=== PATIENT | female | born 1955 | race Caucasian/White ===

== ENCOUNTER → 2018-11-28 | Outpatient (REF) | payer MEDICAID ==
[2018-12-03 00:06] LABS: ALDOSTERONE 3.4 ng/dL (0.0-30.0); RENIN LEVEL 9.413 ng/mL/hr (0.167-5.380)
== END ==
LOC: M LAB REF 12:38
PROVIDERS: ATTEND Internal Medicine
DX: E26.89 Other hyperaldosteronism (principal)

== ENCOUNTER 2019-04-01 13:17 | Inpatient (IN) | payer MEDICAID, OTHER ==
[~2019-04-01] VITALS: Ht 157.5 cm; Wt 61.5 kg
[2019-04-01] MEDS ORDERED: NS 1,000 ML IV ONE (14:30)
[2019-04-01] MEDS ORDERED: PANTOPRAZOLE 40MG INJ (PROTONIX) (C9113) IV ONE (14:30)
[2019-04-01] MEDS ORDERED: METOCLOPRAMIDE INJ 10MG/2ML VIAL (J2765) IV ONE (14:30)
[2019-04-01 14:56] LABS: BASO % 0.3 % (0.0-1.0); EOS # 0.1 10^3/uL (0.0-0.5); HEMATOCRIT 35.6 % (36.0-47.0); HEMOGLOBIN 11.2 g/dl (12.0-15.5); LYMPH # 0.9 10^3/uL (1.5-5.0); LYMPH % 7.6 % (24.0-44.0); MEAN CORPUSCULAR HEMOGLOBIN 26.2 pg (27.0-33.0); MEAN CORPUSCULAR HGB CONC 31.5 g/dl (32.0-36.5); MEAN CORPUSCULAR VOLUME 83.4 fl (80.0-96.0); MONO # 1.5 10^3/uL (0.0-0.8); MONO % 12.9 % (0.0-5.0); NEUTROPHILS # 9.2 10^3/uL (1.5-8.5); NEUTROPHILS % 77.2 % (36.0-66.0); PLATELET COUNT, AUTOMATED 966 10^3/uL (150-450); RED BLOOD COUNT 4.27 10^6/uL (4.00-5.40); WHITE BLOOD COUNT 11.9 10^3/uL (4.0-10.0)
--- NOTE | 2019-04-01 15:00 | REP ---
Chest x-ray: Two views. History: Abdomen pain. Findings: Heart is mildly enlarged with cardiothoracic ratio measuring 53.8%. The aorta is calcific and tortuous. There is minimal linear fibrosis in the left inferior perihilar region. The lungs are otherwise clear. Right hemidiaphragm is slightly elevated. Pleural angles are sharp. Pulmonary vasculature is not increased. Impression: Mildly enlarged heart. Linear fibrosis left base. Otherwise no acute disease. Electronically Signed by Jose Ramon Garcia MD 04/01/2019 05:21 P
[2019-04-01 15:11] LABS: INR 1.21; PROTHROMBIN TIME 15.1 SECONDS (11.8-14.0)
[2019-04-01 15:12] LABS: PARTIAL THROMBOPLASTIN TIME 39.5 SECONDS (25.0-38.4)
[2019-04-01 15:27] LABS: ALBUMIN 2.2 GM/DL (3.2-5.2); ALT/SGPT 29 U/L (12-78); BILIRUBIN,DIRECT 0.1 MG/DL (0.0-0.2); BILIRUBIN,TOTAL 0.3 MG/DL (0.2-1.0); BLOOD UREA NITROGEN 12 MG/DL (7-18); CALCIUM LEVEL 9.6 MG/DL (8.8-10.2); CARBON DIOXIDE LEVEL 27 MEQ/L (21-32); CHLORIDE LEVEL 98 MEQ/L (98-107); CREATININE FOR GFR 0.64 MG/DL (0.55-1.30); GLOMERULAR FILTRATION RATE > 60.0 (>45); GLUCOSE, FASTING 110 MG/DL (70-100); LIPASE 77 U/L (73-393); SODIUM LEVEL 132 MEQ/L (136-145); TOTAL PROTEIN 7.1 GM/DL (6.4-8.2)
[2019-04-01] MEDS ORDERED: ISOVUE-370 76% 100ML VIAL (Q9967) As Ordered ONE (15:29)
--- NOTE | 2019-04-01 16:47 | REP ---
CT abdomen and pelvis with IV but without oral contrast: History: Abdomen pain and bloating. Comparison CT study is from July 18, 2007. CT contrast dose: 100 ml of intravenous Isovue [address] findings: Digital preliminary mandarin speaking nanny radiograph shows no evidence of bowel distension. There is mild bibasilar linear fibrosis in the lung orozco. No pleural effusion is seen. There is however a moderate pericardial effusion. There is a mildly enlarged lymph node in the epicardial fat measuring 1.5 cm in diameter. There is thickening of the right hemidiaphragm. No focal liver lesion is seen. The spleen is unremarkable. There is a surgical clip in the location of the right adrenal gland. This appears to have been removed. The left adrenal gland contains a small nodule in its superior margin measuring 1.8 cm in diameter. The left adrenal gland is larger than it was in 2008. No abnormality is noted within the gallbladder or pancreas. There is mild right-sided hydronephrosis. The kidneys enhance symmetrically. There is a right upper pole cyst with some cortical scarring in the right kidney. There is an extensive pattern of soft tissue infiltration and nodularity along the peritoneal reflections throughout the abdomen superiorly and inferiorly consistent with peritoneal carcinomatosis. There is some infiltration of the mesenteric fat and a few mesenteric lymph nodes are seen. There is a large heterogeneously enhancing mass in the left mid abdomen laterally. This mass lesion measures 9.1 x 6.4 x 11.0 cm in overall dimension. There is adenopathy along its posteromedial. This includes a 1.9 cm x 1.5 cm lymph node. There are one or two smaller nodes. There is gastrocolic lymphadenopathy. There are two shellie foci here 2.5 and 1.9 cm in greatest diameter. There is no evidence of diffuse ascites. In the pelvis, there is peritoneal reflection infiltration as elsewhere in the peritoneal cavity. The margins of the uterus are obscured. Ovaries are obscured. Impression: Extensive infiltrative process throughout the peritoneum consistent with peritoneal carcinomatosis. Findings include a large mass in the left mid abdomen in the pericolonic and tyler mesenteric fat 11 cm in greatest diameter. There is multifocal adenopathy. There is moderate right-sided hydronephrosis due to right distal ureteral obstruction. There is a small nodule in the left adrenal gland. The right adrenal gland is removed. There is a moderate pericardial effusion. Principal differential possibilities would be metastatic ovarian carcinoma, lymphoma, and other metastatic adenocarcinoma. Electronically Signed by Jose Ramon Garcia MD 04/01/2019 05:23 P
[2019-04-01] MEDS ORDERED: ALBU83IN NEB (17:55)
[2019-04-01] MEDS ORDERED: ALBUTEROL SULFATE 2.5 MG/0.5 ML INH NEB SOLN NEB PRN (18:30)
[2019-04-01] MEDS ORDERED: ANEXSIA, NORCO 7.5MG/325MG TABLET(HYDROCODONE/APAP) PO PRN (18:30)
--- NOTE | 2019-04-01 18:49 | HPEPDOC ---
General Date of Admission Apr 01, 2019 at 17:19 Date of Service: Apr 01, 2019 Primary Care Physician: MAXIM JOSHI DO Attending Physician: JUANIS JACKSON MD Chief Complaint The patient is a 63-year-old female admitted with a reason for visit of Metastatic Cancer. History of Present Illness PRIMARY CARE PROVIDER: Maxim Joshi ATTENDING: CHIEF COMPLAINT: Abdominal pain, weight loss HISTORY OF PRESENT ILLNESS: Patient is a 63-year-old female who comes in with complaint of 2 months of abdominal pain, nausea, vomiting, bloating and shortness of breath, recently she has noticed that she has become more lethargic and pale in color.. Her abdominal pain is located in her lower gastric area, made worse with food. She reports that 2 weeks ago. She developed decreased appetite, quick fullness with eating, black tarry stools, and reports a 22 pound weight loss in the last 10 months unintentionally. She denies any constipation, denies any dysphagia, denies any dysphonia, denies any uterine bleeding. . She denies any prior colonoscopy, states her last Pap smear was when she was 4 days. Patient states that her vitals have been normal at home. She came in today because she states that has becomes too difficult for her to eat without causing abdominal pain, and bloated or full. 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 . She stated that at the time she was having episodic elevated blood pressures, and they noted 2 tumors, one on the right and one on the left adrenal gland. However, the right adrenal gland was removed. 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 Hospitalist team was called for admission. PAST MEDICAL HISTORY: #1 pheochromocytoma status post surgical resection #2 hypertension #3. Psoriasis #4 Hernandez phenomenon PAST SURGICAL HISTORY: #1 adrenalectomy of the right adrenal gland #2. Laser surgery on tear duct SOCIAL HISTORY: Happily , lives with , no drug use. Occasional alcohol use. No illicit substance FAMILY HISTORY: Patient's brother was diagnosed with pituitary tumor, first cousin was diagnosed with stomach cancer. Primary care for patient has concern for MEN1 ALLERGIES: Please see below. REVIEW OF SYSTEMS: CONSTITUTIONAL: No fevers, denies chills, denies weight loss, admits to lethargy HEENT: No rhinorrhea, no itchy eyes, no congesion, No tonsilor exudates CARDIOVASCULAR: No murmurs no palpitations and arrhythmias, admits to RESPIRATORY: Not cough, No SOB, no issues to report GASTROINTESTINAL: Positive for nausea, vomiting, no diarrhea, no difficulty swelling, no constipation HEMATOLOGICAL: No bleeding GENITOURINARY:No Issues HEMATOLOGIC/LYMPHATIC: No swelling, No bleeding PE GENERAL APPEARANCE: Alert no acute distress. SKIN: Warm, well perfused., Slightly pale ENT: Palate intact, gonzalez tympanic membrane no bulging, no erythema, Neck supple, no thyromegaly THORAX: Symmetrical. LUNGS: Clear to auscultation bilaterally. HEART: Normal S1, S2. No murmurs, no rubs, no gallops ABDOMEN: Soft. No masses. Bowel sounds are present., No organomegaly TRUNK/SPINE:Straight. EXTREMITIES: Moves all extremities equally. No gross deformities. PULSES: 2+ upper and lower extremity . VIEW OF SYSTEMS: HOME MEDICATIONS: Please see below. LABORATORY DATA: See below. IMAGING: CT of the abdomen/pelvis:Extensive infiltrative process throughout the peritoneum consistent with peritoneal carcinomatosis. Findings include a large mass in the left mid abdomen in the pericolonic and perimesenteric fat 11 cm in greatest diameter. There is multifocal adenopathy. There is moderate right-sided hydronephrosis due to right distal ureteral obstruction. There is a small nodule in the left adrenal gland. The right adrenal gland is removed. There is a moderate pericardial effusion. Principal differential possibilities would be metastatic ovarian carcinoma, lymphoma, and other metastatic adenocarcinoma. Chest Xray; Mildly enlarged heart. Linear fibrosis left base. Otherwise no acute disease MICROBIOLOGY: Please see below. ASSESSMENT: Patient is a 63-year-old with past medical history significant for pheochromocytoma, family history is concerning for men type I syndrome presented with nausea, vomiting, and abdominal pain. CT showed peritoneal carcinomatosis. She'll be admitted for cancer workup with differential diagnosis including metastatic ovarian cancer, lymphoma or metastatic adenocarcinoma. #Peritoneal carcinomatosis secondary to pheochromocytoma, recurrence, lymphoma, metastatic adenocarcinoma, ovarian carcinoma, pancreatic carcinoma -Patient was tachycardic on presentation -Will order 24-hour urine metanephrines, as well as 24-hour urine catecholamines, plasma fractionated metanephrines has also been ordered to investigate for pheochromocytoma -IV fluids due to poor appetite, regular diet. Also ordered -CEA 125 to investigate for ovarian cancer -CA 19.9 to investigate for pancreatic cancer -Will consult oncology in the morning #Thrombocytosis, secondary to underlying carcinoma -Please see above for investigate if methods #Moderate right-sided hydronephrosis due to right external urethral obstruction -Patient has no issues urinating, she denied any weak stream, no obstructive symptoms. We'll continue to monitor. Consider referral to urology for stent placement. If patient's urination becomes an issue. #DVT prophylaxis -Lovenox Home Medications Scheduled PRN Albuterol Sulf (Albuterol Sulfate) 2.5 Mg/3 Ml Vial.neb, 1 VIAL NEB Q4H PRN for SOB/WHEEZING, (Reported) Allergies Coded Allergies: Penicillins (Verified Allergy, Unknown, 04/01/19) ATTENDING NOTE I have personally evaluated and examined the patient. Discussed with residents and student regarding plan of care and agree with the above assessment and plan. 63F presented with complaints of N/V/abdominal tenderness and bloating for asim ral months, found to have extensive peritoneal infiltrates/mass and lymphadenopathy suggestive of peritoneal carcinomatosis in setting of extensive cancer history in family. Reportedly had a history of aldosterone tumor vs pheochromocytoma? Need to obtain records, oncology consultation and biopsy. BELTRAN ROA DO Apr 01, 2019 18:49 JUANIS JACKSON MD Apr 02, 2019 07:53
[2019-04-01 20:00] VITALS: BP 146/73
[2019-04-01] MEDS: METOCLOPRAMIDE INJ 10MG/2ML VIAL (J2765) IV SCH (21:26)
[2019-04-01] MEDS ORDERED: SLF 3 ML SYR IV PRN (21:30)
[2019-04-01] MEDS: SLF 3 ML SYR IV SCH (21:46)
[2019-04-02] VITALS: BP 132/71
[2019-04-02] MEDS: METOCLOPRAMIDE INJ 10MG/2ML VIAL (J2765) IV SCH ×4 (03:46→20:32)
[2019-04-02 04:00] VITALS: BP 131/67
[2019-04-02] MEDS: SLF 3 ML SYR IV SCH ×3 (05:20→20:32)
[2019-04-02 06:49] LABS: ALBUMIN 1.6 GM/DL (3.2-5.2); ALT/SGPT 22 U/L (12-78); BILIRUBIN,TOTAL 0.3 MG/DL (0.2-1.0); BLOOD UREA NITROGEN 9 MG/DL (7-18); CALCIUM LEVEL 8.6 MG/DL (8.8-10.2); CARBON DIOXIDE LEVEL 28 MEQ/L (21-32); CHLORIDE LEVEL 101 MEQ/L (98-107); CREATININE FOR GFR 0.74 MG/DL (0.55-1.30); GLOMERULAR FILTRATION RATE > 60.0 (>45); GLUCOSE, FASTING 156 MG/DL (70-100); MAGNESIUM LEVEL 1.6 MG/DL (1.8-2.4); POTASSIUM SERUM 4.1 MEQ/L (3.5-5.1); SODIUM LEVEL 134 MEQ/L (136-145); TOTAL PROTEIN 6.7 GM/DL (6.4-8.2)
[2019-04-02 08:00] VITALS: BP 114/77
[2019-04-02] MEDS ORDERED: NS 1,000 ML IV SCH (08:00)
[2019-04-02 08:03] LABS: BASO # 0.1 10^3/uL (0.0-0.2); BASO % 0.4 % (0.0-1.0); EOS # 0.1 10^3/uL (0.0-0.5); EOS % 1.2 % (0.0-3.0); HEMATOCRIT 32.8 % (36.0-47.0); HEMOGLOBIN 10.2 g/dl (12.0-15.5); LYMPH % 8.5 % (24.0-44.0); MEAN CORPUSCULAR HEMOGLOBIN 26.3 pg (27.0-33.0); MEAN CORPUSCULAR HGB CONC 31.1 g/dl (32.0-36.5); MEAN CORPUSCULAR VOLUME 84.5 fl (80.0-96.0); MONO % 17.3 % (0.0-5.0); NEUTROPHILS # 8.3 10^3/uL (1.5-8.5); NEUTROPHILS % 71.3 % (36.0-66.0); PLATELET COUNT, AUTOMATED 935 10^3/uL (150-450); RED BLOOD COUNT 3.88 10^6/uL (4.00-5.40); WHITE BLOOD COUNT 11.6 10^3/uL (4.0-10.0)
[2019-04-02] MEDS ORDERED: MAG SULF 1GM/100ML (MAG RUN) 1 GM in IV 1 EA IV ONE (08:15)
[2019-04-02] MEDS: ENOXAPARIN 40 MG/0.4 ML SYRINGE (J1650) SC SCH (09:00)
--- NOTE | 2019-04-02 11:43 | IPNPDOC ---
Text Note Date of Service The patient was seen on 04/02/19. NOTE SUBJECTIVE: Patient was examined at bedside, she was found by family. She had. She denied chest pain. She had no overnight activity. She denied any breathing difficulty. She is scheduled for biopsy this afternoon. All of her questions were appropriately answered. OBJECTIVE: PHYSICAL EXAMINATION: GENERAL APPEARANCE: Alert no acute distress. SKIN: Warm, well perfused. , Slightly pale appearance LUNGS: Clear to auscultation bilaterally. HEART: Normal S1, S2. No murmurs, no rubs, no gallops ABDOMEN: Soft. No masses. Bowel sounds are present. TRUNK/SPINE:Straight. EXTREMITIES: Moves all extremities equally. No gross deformities. PULSES: 2+ upper and lower extremity . LABORATORY DATA: Please see below. IMAGING: CT of the abdomen/pelvis:Extensive infiltrative process throughout the peritoneum consistent with peritoneal carcinomatosis. Findings include a large mass in the left mid abdomen in the pericolonic and perimesenteric fat 11 cm in greatest diameter. There is multifocal adenopathy. There is moderate right-sided hydronephrosis due to right distal ureteral obstruction. There is a small nodule in the left adrenal gland. The right adrenal gland is removed. There is a moderate pericardial effusion. Principal differential possibilities would be metastatic ovarian carcinoma, lymphoma, and other metastatic adenocarcinoma. 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 CT showed peritoneal carcinomatosis. She'll be admitted for cancer workup with differential diagnosis including metastatic ovarian cancer, lymphoma or metastatic adenocarcinoma. 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 Has a past medical h -Patient was tachycardic on presentation, but has settled down since presentation -Pending 24-hour urine metanephrines, -Pending 24-hour urine catecholamines - Pending CA 125 to investigate for ovarian cancer -Pending CA 19.9 to investigate for pancreatic cancer -Pending CEA -consulted oncology - Will obtain old out patient/inpatient records from [facility] -Pending biopsy by IR. This afternoon #Thrombocytosis, secondary to underlying carcinoma -Please see above for investigate if methods -Improving #Moderate right-sided hydronephrosis due to right external urethral obstruction -Patient has no issues urinating, she denied any weak stream, no obstructive symptoms. We'll continue to monitor. Consider referral to urology for stent placement. If patient's urination becomes an issue. -She is currently making adequate urine for 24-hour urine collection. -BUN and creatinine within normal limits #DVT prophylaxis -Lovenox ATTENDING NOTE I have personally evaluated and examined the patient. Discussed with residents and student regarding plan of care and agree with the above assessment and plan. VS,Fishbone, I+O VS, Fishbone, I+O Laboratory Tests 04/01/19 14:33 04/02/19 05:38 04/02/19 05:40 Vital Signs Date Time Temp Pulse Resp B/P (MAP) Pulse Ox O2 Delivery O2 Flow Rate FiO2 04/02/19 08:00 98.4 93 18 114/77 (89) 95 Room Air I&O- Last 24 Hours up to 6 AM 04/02/19 06:00 Intake Total 2040 ml Output Total 1205 ml Balance 835 ml GME ATTESTATION GME ATTESTATION My faculty preceptor for this patient encounter was physically present during the encounter and was fully available. All aspects of the patient interview, examination, medical decision making process, and medical care plan development were reviewed and approved by the faculty preceptor. The faculty preceptor is aware and concurs with the plan as stated in the body of this note and will attest to such by his/her cosignature. BELTRAN ROA DO Apr 02, 2019 11:43 JUANIS JACKSON MD Apr 02, 2019 13:40
[2019-04-02 11:51] VITALS: BP 116/66
[2019-04-02] MEDS ORDERED: LIDOCAINE 1% MDV 20ML VIAL As Ordered ONE (14:05)
[2019-04-02 16:00] VITALS: BP 129/61
--- NOTE | 2019-04-02 16:20 | REP ---
ULTRASOUND-GUIDED LEFT ABDOMINAL MASS BIOPSY The procedure was performed under the direct supervision of Dr. Garcia. The patient has a history of A large heterogeneously enhancing mass in the in the left abdomen laterally measuring 9.1 x 6.4 x 11 cm seen on a previous CT scan dated 04/01/2019. The risks and benefits of the procedure were explained to the patient and informed consent was obtained. The left abdominal mass was localized using ultrasound guidance. The skin was prepped and draped in a sterile fashion. 1% lidocaine was used as a local anesthetic. Using ultrasound guidance a 17/18 gauge coaxial needle biopsy system was inserted and advanced into the mass. Eight core biopsy samples were obtained and sent to lab. The patient tolerated the procedure well and there were no immediate complications. After the appropriate amount of monitored convalescence the patient was discharged from the department. Electronically Signed by LIAM Cummins 04/02/2019 03:23 P Electronically Signed by Jose Ramon Garcia MD 04/02/2019 04:11 P
[2019-04-02 20:00] VITALS: BP 130/70
--- NOTE | 2019-04-02 22:58 | CR ---
DATE OF CONSULTATION: 04/02/2019 INPATIENT HEMATOLOGY/ONCOLOGY CONSULTATION REQUESTING PHYSICIAN: Dr. Kang IDENTIFICATION AND CHIEF COMPLAINT: Shannan Gonzales is a amauri 63-year-old woman seen at the request of Dr. Kang of the inpatient medicine service for evaluation and management recommendations regarding newly identified peritoneal carcinomatosis of uncertain etiology. The patient reports, "I was throwing up and couldn't keep anything down and so I came to the hospital." HISTORY OF PRESENT ILLNESS: Shannan Gonzales is a very pleasant 63 with a past medical history significant for bilateral adrenal adenomas complicated by paroxysmal hypertension in the past. The patient was found to have paroxysmal hypertension in the year 2008 and diagnostic evaluation showed endocrine abnormalities, with excessive adrenal activity. She underwent resection of a right adrenal adenoma at [facility] in the year 2000 which improved, but did not completely correct, her hypertension. The patient remained clinically stable until approximately 2 months ago, when she had gradual onset of abdominal pain, nausea, vomiting and abdominal bloating. She presented to the emergency department at [facility], and was admitted to hospital on April 01, 2019. The patient underwent CT scan of the abdomen and pelvis on the day of admission, with findings consistent with peritoneal carcinomatosis. Report was of extensive soft tissue infiltration and nodularity along the peritoneal reflection throughout the abdomen, with pathologic mesenteric lymph nodes observed. A large, heterogeneous, enhancing mass was noted in the left mid abdomen laterally measuring 9.1 cm x 6.4 cm x 11 cm in overall dimensions. Lymphadenopathy, pathologic in size, was also noted. In the chest, there was a mildly enlarged lymph node in the epicardial fat measuring 1.5 cm with thickening of the right hemidiaphragm seen. The liver and spleen were unremarkable. The patient underwent needle aspiration under ultrasound guidance on April 02, 2019 with histopathologic review pending at this time. Mrs. Gonzales reports persistent abdominal pain rated only 3 out of 10 in intensity at this time. She is ambulatory, and nausea and vomiting have improved since hospital admission. She has had no recent fevers, chills nor sweats. ALLERGIES: The patient has a history of allergy to PENICILLIN. CURRENT MEDICATIONS: - albuterol nebulizer therapy 2.5 mg by mouth every 4 hours as needed for wheezing or dyspnea. PAST MEDICAL HISTORY: The patient has a past history most significant for bilateral adrenal adenomas with right adrenalectomy in 2010. There is a history of paroxysmal hypertension associated with her adenomas. There is no documentation of a true pheochromocytoma per the patient or review of records. There is a history of psoriasis and a history of Raynaud's syndrome. The patient also underwent bilateral laser surgery to open blocked tear ducts in the past. 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 Tobacco: The patient has never used tobacco. Alcohol: The patient rarely consumes alcohol. Illicit drugs: The patient has never used illicit drugs. FAMILY HISTORY: The patient's father at age of 51 from myocardial infarction. The patient's mother at age of 55 of carcinoma of the throat associated with tobacco use. The patient had a sister who of lung cancer and a brother who of a central nervous system tumor at the age of approximately 49. The patient has four children all of whom are healthy. REVIEW OF SYSTEMS: Neurologic: History of headaches associated with paroxysmal hypertension in the distant past. No seizures. No focal neurologic deficits. No tremor. Respiratory: Modest shortness of breath prior to admission, quiescent at this time. No cough. No chest pain. Cardiac: No history of myocardial infarction. No exertional chest pressure. No leg edema. No orthopnea. Gastrointestinal: Abdominal pain with nausea and vomiting prior to admission, along with irregular bowel habits with intermittent constipation and diarrhea over the past several weeks. No history of jaundice. Hematologic: No history of excessive bleeding or bruising. No prior history of lymphadenopathy. Genitourinary: No history of nephrolithiases. No dysuria, no hematuria. Endocrine: History of hypertension as noted. No history of diabetes mellitus nor thyroid disease. No intolerance of heat or cold, nor polyphagia or polydipsia. The remainder of the review of systems was obtained and was negative. PHYSICAL EXAMINATION: The patient is a petite, well-developed, well-nourished woman, awake, alert and fully oriented, friendly, cooperative, in no distress acutely. Height 157.48 cm, weight 60.7 kg, body surface area 1.64 meters squared. Temperature 97.0, pulse 97, respirations 16, blood pressure 130/70, oxygen saturation 96% on room air. HEENT: Normocephalic, atraumatic. Pupils round and reactive. Extraocular muscles intact. Sclerae anicteric. Oropharynx without lesions. Neck: Supple without thyromegaly. Lymphatics: No pathologic lymphadenopathy noted in the supraclavicular, cervical, axillary, nor inguinal regions. Lungs: Clear to auscultation and percussion. Spine: Nontender. Cardiac exam: Regular rhythm. Point of maximal impulse nondisplaced. S1, S2 without gallop, rub, or murmur appreciated. Breast: Examination deferred at this time (the patient reports she has not had a recent breast exam). Abdomen: Active bowel sounds. The abdomen is mildly distended and mildly tender in the right lower quadrant. There is a palpable mass in the right lower quadrant that measures approximately 10 cm in diameter with irregular contours. Rectal: Examination deferred. Pelvic: Examination deferred. Extremities: Without clubbing, cyanosis or edema. Neurologic Exam: Mental status intact. Cranial nerves intact. Motor and sensory grossly intact. LABORATORY DATA: Laboratory studies dated April 02, 2019 include white blood count 11,600 per microliter, hemoglobin 10.2 grams per deciliter, hematocrit 32.8%, platelet count 935,000. Sodium 134, potassium 4.1, chloride 101, bicarbonate 28, BUN 9, creatinine 0.74 mg per deciliter, glucose 156 mg per deciliter, alkaline phosphatase elevated at 169. Albumin markedly depressed at 1.6 grams per deciliter. IMPRESSION: Peritoneal carcinomatosis. The patient has peritoneal carcinomatosis without evidence of significant thoracic disease. The patient declined a breast exam at this time but is willing to proceed with a breast exam at some point during this admission. There is a range of diagnostic considerations, but peritoneal carcinomatosis is most often seen in ovarian cancer and colon cancer and these, therefore, are the most likely tissue types to be considered. Less likely is gastric cancer and breast cancer. Lymphoma remains a consideration, although this would be an atypical presentation as one would expect bulky lymphadenopathy given the degree of peritoneal disease. It is unlikely that the patient has a pheochromocytoma as this is an atypical presentation, particularly in the absence of uncontrolled hypertension. A tissue diagnosis will determine the appropriate staging procedures and management options. There is a remote possibility that the diagnosis will ultimately be cancer of unknown primary, but this is relatively unlikely. A lengthy conversation was undertaken with the patient and her beginning at 8:00 p.m. and ending at 9:45 p.m. with more than one hour spent in [id number] time counseling the patient regarding possible diagnoses and treatment algorithms depending upon the specific histologic diagnosis. The patient and her appear to be somewhat more comfortable with the situation at this time. It is recommended that breast examination be performed prior to discharge, but results from biopsy will likely provide the histologic diagnosis and guide management. The patient will be seen in followup on a regular basis while she remains in hospital, and it was cautioned that she may require therapy at a large tertiary care center for at least part of her treatment, but this remains to be determined. They were asked to contact this practice should questions or concerns arise.
[2019-04-03] VITALS: BP 130/67
[2019-04-03] MEDS: METOCLOPRAMIDE INJ 10MG/2ML VIAL (J2765) IV SCH ×3 (03:17→15:44)
[2019-04-03 04:00] VITALS: BP 129/68
[2019-04-03] MEDS: SLF 3 ML SYR IV SCH ×2 (05:27→14:30)
[2019-04-03 06:21] LABS: HEMATOCRIT 32.6 % (36.0-47.0); HEMOGLOBIN 10.1 g/dl (12.0-15.5); MEAN CORPUSCULAR VOLUME 83.8 fl (80.0-96.0); PLATELET COUNT, AUTOMATED 940 10^3/uL (150-450); RED BLOOD COUNT 3.89 10^6/uL (4.00-5.40); WHITE BLOOD COUNT 11.3 10^3/uL (4.0-10.0)
[2019-04-03 08:00] VITALS: BP 129/66
[2019-04-03] MEDS: ENOXAPARIN 40 MG/0.4 ML SYRINGE (J1650) SC SCH (09:00)
[2019-04-03 10:33] LABS: CA 125 259.1 U/ML (<30.2)
[2019-04-03 10:34] LABS: CA19-9 TUMOR MARKER,CARBOHYDRA < 1.2 U/ML (<35.0)
[2019-04-03 12:00] VITALS: BP 132/68
--- NOTE | 2019-04-03 12:34 | IPNPDOC ---
Text Note Date of Service The patient was seen on 04/03/19. NOTE SUBJECTIVE: Patient was examined this morning, she is status post tissue biopsy. She tolerated the procedure without any difficulty. . She was evaluated by oncologist, Dr. Salvador last night, she reported that all of her questions were answered. She is currently patient is awaiting the results of her tissue biopsy. OBJECTIVE: PHYSICAL EXAMINATION: GENERAL APPEARANCE: Alert no acute distress. LUNGS: Clear to auscultation bilaterally. HEART: Normal S1, S2. No murmurs, no rubs, no gallops ABDOMEN: Soft. No masses. Bowel sounds are present. PULSES: 2+ upper and lower extremity . LABORATORY DATA: Please see below. IMAGING: CT of the abdomen/pelvis:Extensive infiltrative process throughout the peritoneum consistent with peritoneal carcinomatosis. Findings include a large mass in the left mid abdomen in the pericolonic and perimesenteric fat 11 cm in greatest diameter. There is multifocal adenopathy. There is moderate right-sided hydronephrosis due to right distal ureteral obstruction. There is a small nodule in the left adrenal gland. The right adrenal gland is removed. There is a moderate pericardial effusion. Principal differential possibilities would be metastatic ovarian carcinoma, lymphoma, and other metastatic adenocarcinoma. 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 CT showed peritoneal carcinomatosis. She'll be admitted for cancer workup with differential diagnosis including meta static ovarian cancer, lymphoma or metastatic adenocarcinoma. 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 -Elevated CA 125-- suggestive of ovarian cancel. Will await tissue biospy -Status post tissue biospy -Pending 24-hour urine metanephrines, -Pending 24-hour urine catecholamines - Pending CA 125 to investigate for ovarian cancer -Pending CA 19.9 to investigate for pancreatic cancer -Dr. Salvador, Oncology has been consulted and will follow the case - Will obtain old out patient/inpatient records [facility] -Currently Pending pathology of tissue biospy results #Thrombocytosis, secondary to underlying carcinoma -Will continue to monitor #Moderate right-sided hydronephrosis due to right external urethral obstruction -Patient has no issues urinating, she denied any weak stream, no obstructive symptoms. We'll continue to monitor. Consider referral to urology for stent plac ement. If patient's urination becomes an issue. #DVT prophylaxis -Lovenox ATTENDING NOTE I have personally evaluated and examined the patient. Discussed with residents a nd student regarding plan of care and agree with the above assessment and plan. VS,Fishbone, I+O VS, Fishbone, I+O Laboratory Tests 04/03/19 05:48 Vital Signs Date Time Temp Pulse Resp B/P (MAP) Pulse Ox O2 Delivery O2 Flow Rate FiO2 04/03/19 08:00 99.0 100 22 129/66 (87) 96 04/03/19 04:00 Room Air I&O- Last 24 Hours up to 6 AM 04/03/19 06:00 Intake Total 2840 ml Output Total 2700 ml Balance 140 ml GME ATTESTATION GME ATTESTATION My faculty preceptor for this patient encounter was physically present during the encounter and was fully available. All aspects of the patient interview, examination, medical decision making process, and medical care plan development were reviewed and approved by the faculty preceptor. The faculty preceptor is aware and concurs with the plan as stated in the body of this note and will attest to such by his/her cosignature. BELTRAN ROA DO Apr 03, 2019 12:34 JUANIS JACKSON MD Apr 03, 2019 19:22
[2019-04-03 13:38] LABS: BLOOD UREA NITROGEN 8 MG/DL (7-18); CALCIUM LEVEL 8.7 MG/DL (8.8-10.2); CARBON DIOXIDE LEVEL 23 MEQ/L (21-32); CHLORIDE LEVEL 96 MEQ/L (98-107); CREATININE FOR GFR 0.86 MG/DL (0.55-1.30); GLOMERULAR FILTRATION RATE > 60.0 (>45); GLUCOSE, FASTING 336 MG/DL (70-100); POTASSIUM SERUM 4.5 MEQ/L (3.5-5.1); SODIUM LEVEL 129 MEQ/L (136-145)
[2019-04-03 16:00] VITALS: BP 118/60
[2019-04-03] MEDS ORDERED: ACETAMINOPHEN TAB 650MG DOSE (2X325MG) PO PRN (17:15)
[2019-04-03] MEDS ORDERED: HYDR-4514 PO (17:56)
[2019-04-03] MEDS ORDERED: ONDA-195 PO (17:59)
[2019-04-03] MEDS ORDERED: REGL5TAB2 PO (18:02)
--- NOTE | 2019-04-03 18:33 | DS.PDOC ---
Discharge Summary General Date of Admission Apr 01, 2019 at 17:19 Date of Discharge 04/03/19 Specialist/Consultants Involve: EVERARDO SALVADOR MD Discharge Summary PROCEDURES PERFORMED DURING STAY: Biospy of abdominal Mass ADMITTING DIAGNOSES: 1. Abdominal Pain, Nausea, Weight Loss, Poor appetite DISCHARGE DIAGNOSES: 1. Peritoneal Carcinomatosis 2. Large Litzy in mid abdomen COMPLICATIONS/CHIEF COMPLAINT: Metastatic Cancer. HISTORY OF PRESENT ILLNESS: Patient is a 63-year-old female who comes in with complaint of 2 months of abdominal pain, nausea, vomiting, bloating and shortness of breath, recently she has noticed that she has become more lethargic and pale in color.. Her abdominal pain is located in her lower gastric area, made worse with food. She reports that 2 weeks ago. She developed decreased appetite, quick fullness with eating, black tarry stools, and reports a 22 pound weight loss in the last 10 months unintentionally. She denies any constipation, denies any dysphagia, denies any dysphonia, denies any uterine bleeding. . She denies any prior colonoscopy, states her last Pap smear was when she was 4 days. Patient states that her vitals have been normal at home. She came in today because she states that has becomes too difficult for her to eat without causing abdominal pain, and bloated or full. 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 . She stated that at the time she was having episodic elevated blood pressures, and they noted 2 tumors, one on the right and one on the left adrenal gland. However, the right adrenal gland was removed. 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 Hospitalist team was called for admission. HOSPITAL COURSE: Patient was admitted and underwent a left abdominal mass biospy by interventional radiology. She tolerated the procedure without any difficulty. Tumor markers where ordered. Oncology was consulted. Patient was a evaluated by oncology, and a discussion was had with patient about diagnosis and treatment algorithm, depending on specific histological diagnosis. Family had their quest ions answered adequately by oncology as well as the primary team. She was discharged on April 03 2019 in stable condition. Patient was hemodynamically stable. She was able tolerate by mouth food. She reported minimal nausea with eating. She was discharge instructions to follow-up with Dr. Salvador, oncology on April 07 for biopsy follow up. DISCHARGE MEDICATIONS: Please see below. ALLERGIES: Please see below. PHYSICAL EXAMINATION ON DISCHARGE: VITAL SIGNS: Please see below. GENERAL APPEARANCE: Alert no acute distress. LUNGS: Clear to auscultation bilaterally. HEART: Normal S1, S2. No murmurs, no rubs, no gallops ABDOMEN: Soft. No masses. Bowel sounds are present. PULSES: 2+ upper and lower extremity . LABORATORY DATA: Please see below. IMAGING: Chest x-ray 04/01/2019: Mildly enlarged heart. Linear fibrosis left base. Otherwise no acute disease. CT abdomen and pelvis, 04/01/2019: Extensive infiltrative process throughout the peritoneum consistent with peritoneal carcinomatosis. Findings include a large mass in the left mid abdomen in the pericolonic and tyler mesenteric fat 11 cm in greatest diameter. There is multifocal adenopathy. There is moderate right-sided hydronephrosis due to right distal ureteral obstruction. There is a small nodule in the left adrenal gland. The right adrenal gland is removed. There is a moderate pericardial effusion. Principal differential possibilities would be metastatic ovarian carcinoma, lymphoma, and other metastatic adenocarcinoma. PROGNOSIS: Guarded ACTIVITY: Tolerated. DIET:. As tolerated DISCHARGE PLAN:. Discharged home. Follow-up with oncology DISPOSITION: . DISCHARGE INSTRUCTIONS: 1. Follow-up with oncology ITEMS TO FOLLOWUP ON ON OUTPATIENT: 1. Biopsy results, tumor marker results DISCHARGE CONDITION: Stable TIME SPENT ON DISCHARGE: Greater than 40 minutes. Vital Signs/I&Os Vital Signs Date Time Temp Pulse Resp B/P (MAP) Pulse Ox O2 Delivery O2 Flow Rate FiO2 04/03/19 17:02 99.6 04/03/19 16:00 105 22 118/60 (79) 96 04/03/19 04:00 Room Air I&O- Last 24 Hours up to 6 AM 04/03/19 06:00 Intake Total 2840 ml Output Total 2700 ml Balance 140 ml Laboratory Data Labs 24H Laboratory Tests 2 04/03/19 05:48: Nucleated Red Blood Cells % (auto) 0.0 04/03/19 12:55: Anion Gap 10, Glomerular Filtration Rate > 60.0, Calcium Level 8.7L CBC/BMP Laboratory Tests 04/03/19 05:48 11/15/19 12:55 Discharge Medications Scheduled PRN Albuterol Sulf (Albuterol Sulfate) 2.5 Mg/3 Ml Vial.neb, 1 VIAL NEB Q4H PRN for SOB/WHEEZING, (Reported) Hydrocodone/Acetaminophen (Hydrocodone-Acetamin 7.5-325) 1 Each Tablet, 1 TAB PO Q6HP PRN for MILD PAIN (PS 1-4) Take one tab every 6 hours for pain Metoclopramide Hcl (Reglan) 5 Mg Tablet, 5 MG PO Q6H PRN for NAUSEA 1 hour prior to procedure Ondansetron HCl (Ondansetron HCl) 4 Mg Tablet, 4 MG PO Q6HP PRN for NAUSEA Allergies Coded Allergies: Penicillins (Verified Allergy, Unknown, 04/01/19) ATTENDING NOTE I have personally evaluated and examined the patient. Discussed with residents and student regarding plan of care and agree with the above assessment and discharge plan. GME ATTESTATION GME ATTESTATION My faculty preceptor for this patient encounter was physically present during the encounter and was fully available. All aspects of the patient interview, examination, medical decision making process, and medical care plan development were reviewed and approved by the faculty preceptor. The faculty preceptor is aware and concurs with the plan as stated in the body of this note and will at test to such by his/her cosignature. BELTRAN ROA DO Apr 03, 2019 18:08 JUANIS JACKSON MD Apr 03, 2019 19:25
[2019-04-07 08:26] LABS: DOPAMINE 428 ug/24 hr (0-510); DOPAMINE TOTAL URINE 171 ug/L (Undefined); EPINEPHRINE 3 ug/24 hr (0-20); EPINEPHRINE TOTAL URINE 1 ug/L (Undefined); NOREPINEPHRINE 50 ug/24 hr (0-135); NOREPINEPHRINE TOTAL URINE 20 ug/L (Undefined)
[2019-04-07 14:07] LABS: METANEPHRINE TOTAL URINE 32 ug/L (Undefined); METANEPHRINE URINE 80 ug/24 hr (45-290); NORMETANEPHRINE TOTAL URINE 244 ug/L (Undefined); NORMETANEPHRINE URINE 610 ug/24 hr (82-500)
[2019-04-08 00:06] LABS: METANEPHRINE PLASMA 11 pg/mL (0-62); NORMETANEPHRINE PLASMA 113 pg/mL (0-145)
== END 2019-04-03 19:00 | disposition home or self-care (01) | DRG 240 ==
LOC: M ED 13:17 → M ED INP 17:19 → M PCU 19:00
PROVIDERS: ADMIT Student in an Organized Health Care Education/Training Program; ATTEND Student in an Organized Health Care Education/Training Program
PROC: 0DBW3ZX Excision of Peritoneum, Percutaneous Approach, Diagnostic (ICD-10-PCS; principal; 2019-04-02 15:00)
DX: C78.6 Secondary malignant neoplasm of retroperitoneum and peritoneum (principal); N13.30 Unspecified hydronephrosis; I10 Essential (primary) hypertension; L40.9 Psoriasis, unspecified; I73.00 Raynaud's syndrome without gangrene; D47.3 Essential (hemorrhagic) thrombocythemia; Z88.0 Allergy status to penicillin; Z79.899 Other long term (current) drug therapy

== ENCOUNTER → 2019-04-01 | Outpatient (REF) | payer OTHER ==
[~2019-04-01] MED LIST: ALBU83IN NEB; HYDR-4514 PO; ONDA-195 PO; REGL5TAB2 PO
[2019-04-01 17:25] LABS: BASO # 0.1 10^3/uL (0.0-0.2); BASO % 0.4 % (0.0-1.0); EOS # 0.1 10^3/uL (0.0-0.5); EOS % 0.5 % (0.0-3.0); HEMATOCRIT 34.6 % (36.0-47.0); HEMOGLOBIN 10.4 g/dl (12.0-15.5); LYMPH # 0.8 10^3/uL (1.5-5.0); LYMPH % 7.2 % (24.0-44.0); MEAN CORPUSCULAR HEMOGLOBIN 26.1 pg (27.0-33.0); MEAN CORPUSCULAR HGB CONC 30.1 g/dl (32.0-36.5); MEAN CORPUSCULAR VOLUME 86.9 fl (80.0-96.0); MONO # 1.5 10^3/uL (0.0-0.8); NEUTROPHILS # 8.9 10^3/uL (1.5-8.5); NEUTROPHILS % 77.9 % (36.0-66.0); PLATELET COUNT, AUTOMATED 972 10^3/uL (150-450); RED BLOOD COUNT 3.98 10^6/uL (4.00-5.40); WHITE BLOOD COUNT 11.5 10^3/uL (4.0-10.0)
[2019-04-01 17:45] LABS: BLOOD UREA NITROGEN 11 MG/DL (7-18); CALCIUM LEVEL 8.5 MG/DL (8.8-10.2); CARBON DIOXIDE LEVEL 26 MEQ/L (21-32); CHLORIDE LEVEL 93 MEQ/L (98-107); CREATININE FOR GFR 0.67 MG/DL (0.55-1.30); FREE T4 1.51 NG/DL (0.76-1.46); GLOMERULAR FILTRATION RATE > 60.0 (>45); GLUCOSE, FASTING 148 MG/DL (70-100); POTASSIUM SERUM 4.9 MEQ/L (3.5-5.1); SODIUM LEVEL 130 MEQ/L (136-145)
== END ==
LOC: M LAB REF 16:38
PROVIDERS: ATTEND Internal Medicine
DX: R63.4 Abnormal weight loss (principal)

== ENCOUNTER → 2019-04-15 | Outpatient (CLI) | payer OTHER ==
[~2019-04-15] MED LIST changes: +DOCU100C16 PO; +FAMO1TAB11; +MAGN400T2 PO; +NORC1TAB7 PO; +PERCOCET PO; +SENN-52 PO; +[UNRECOGNIZED DRUG - OTHER] PO
--- NOTE | 2019-04-15 16:24 | REP ---
PET/CT: History: Secondary malignant neoplasm of the peritoneum and retroperitoneum. Ultrasound-guided left abdominal mass biopsy dated April 02, 2019 was read as consistent with malignant mesothelioma. Comparisons: Comparison CT study of the abdomen and pelvis April 01, 2019, the findings of which are well known to me. TECHNIQUE: 1 hour 15 minutes following the intravenous injection of a 8.49 mCi dose of F-18 FDG, three-dimensional PET scintigraphy is acquired from the skull base to the proximal thighs. Triplanar noncontrast CT scanning is acquired through the same anatomic range for attenuation correction, and image registration with scan parameters optimized to minimize radiation exposure to the patient. PET scintigraphy and CT datasets were fused and displayed on a workstation with multiplanar and projection display capability. PET/CT Findings: The visualized intracranial and the head and neck soft tissues are unremarkable. There is no abnormal pulmonary parenchymal hypermetabolic uptake focus. No nodule or mass lesion is seen on accompanying CT in the lungs. There is bilateral lower lobe plate-like atelectasis. There is a hypermetabolic soft tissue focus in the upper outer quadrant of the left breast. Maximum standard uptake value in this focus is 3.45. The asymmetric density or mass lesion associated with this hypermetabolic uptake measures 1.4 by 2.3 cm. There is a small to moderate pericardial effusion. There is no discernible hypermetabolic uptake within the pericardium on PET scintigraphy images. There is a anterior mediastinal lymph node measuring 1.1 cm in greatest diameter with faintly visible non hypermetabolic FDP accumulation. Maximum S U V value 1.8. This is not considered hypermetabolic. There is extensive hypermetabolic uptake throughout the abdomen and pelvis involving the peritoneal reflections. This corresponds with the diffuse infiltrative peritoneal omental disease pattern seen on CT study. Maximum standard uptake values in this extensive omental, mesenteric shellie, and peritoneal reflection tumor stenting pattern ranges up to 14.67. There is hypermetabolic peritoneal studding over the surfaces of the liver. No intraparenchymal hypermetabolic uptake is seen within the liver or spleen. No abnormal adrenal uptake is seen. The patient is status post right adrenalectomy. There is a normal-size hypermetabolic lymph node in the left external iliac lymph node chain with maximum standard uptake value is 7.61. No hypermetabolic focus is seen within the skeleton. Impression: There is an extensive infiltrative pattern of hypermetabolic malignant uptake throughout the peritoneum with omental caking, mesenteric adenopathy, and at least left iliac shellie uptake. This corresponds to the CT finding of peritoneal carcinomatosis pattern. Also noted is a 2 cm hypermetabolic focus of increased uptake in the left breast upper outer quadrant. This should be correlated with mammography and sonography with biopsy if warranted. There is a single normal-sized anterior mediastinal lymph node with non hypermetabolic but visible uptake. No abnormal lung parenchymal or skeletal metastatic uptake is seen. There is a pericardial effusion without associated hypermetabolic uptake. Electronically Signed by Jose Ramon Garcia MD 04/15/2019 04:22 P
== END ==
LOC: M PLARAD 12:46
PROVIDERS: ATTEND Internal Medicine Hematology
DX: C78.6 Secondary malignant neoplasm of retroperitoneum and peritoneum (principal); I31.3 Pericardial effusion (noninflammatory); R59.0 Localized enlarged lymph nodes
CPT/HCPCS: 78815; A9552

== ENCOUNTER 2019-04-20 08:27 | Inpatient (IN) | payer OTHER ==
[~2019-04-20] VITALS: Ht 157.5 cm; Wt 59.1 kg
[~2019-04-20 08:27] MED LIST changes: -DOCU100C16 PO; -FAMO1TAB11; -MAGN400T2 PO; -NORC1TAB7 PO; -PERCOCET PO; -SENN-52 PO
[2019-04-20] MEDS ORDERED: MAGN400T2 PO (08:36)
[2019-04-20] MEDS ORDERED: FAMO1TAB11 (08:36)
[2019-04-20] MEDS ORDERED: DOCU100C16 PO (08:36)
[2019-04-20] MEDS ORDERED: ONDANSETRON 4MG/2ML VIAL (J2405) IV ONE (09:00)
--- NOTE | 2019-04-20 09:27 | REP ---
Clinical: Right flank pain. Technique: Axial noncontrast images from the lung bases to the pubic symphysis with coronal and sagittal reformed. Comparison: 04/01/2019. Findings: Extensive peritoneal carcinomatosis with mesenteric infiltration, mesenteric edema, moderate ascites, and diffuse adenopathy as well as presumed scattered mass lesions along with the lack of contrast enhancement severely limits evaluation. The right kidney demonstrates mild hydroureteronephrosis which can be followed to the mid pelvis where the ureter is then obscured by presumed mass/adenopathy which may be the cause of mechanical ureteral obstruction. This element of hydronephrosis is essentially unchanged compared to 04/01/2019. Subtle low density changes to the bilateral kidneys are also noted and consistent with cysts as compared to prior examination. Liver, spleen, pancreas, gallbladder, and bilateral adrenal glands are grossly normal/stable by noncontrast evaluation. There is no obvious evidence for bowel obstruction although the enteric system is severely limited in evaluation. Pelvis demonstrates distended bladder. The uterus and adnexa are poorly evaluated. No free air. No evidence for abdominal aortic aneurysm. Osseous structures demonstrate degenerative changes without focal abnormality. Lung bases demonstrate right lower lobe, left lower lobe, and lingular atelectasis along with small right pleural reaction. Impression: 1. Mild right hydroureteronephrosis is again noted and essentially unchanged when compared to 04/01/2019 likely secondary to mechanical obstruction of the distal ureter due to surrounding malignancy. 2. Extensive diffuse abdominopelvic metastatic disease/malignancy including peritoneal caking, carcinomatosis, ascites, adenopathy. Mass lesion in the left upper quadrant as well as scattered mass lesions suspected. 3. Evaluation is significantly limited by the lack of contrast and diffuse malignant findings. Electronically Signed by Edi Prado MD 04/20/2019 09:18 A
[2019-04-20] MEDS: NS 1,000 ML IV SCH ×2 (09:42→16:56)
[2019-04-20 09:59] LABS: BASO % 0.2 % (0.0-1.0); EOS % 0.1 % (0.0-3.0); HEMOGLOBIN 10.3 g/dl (12.0-15.5); LYMPH # 0.6 10^3/uL (1.5-5.0); LYMPH % 3.9 % (24.0-44.0); MEAN CORPUSCULAR HEMOGLOBIN 25.6 pg (27.0-33.0); MEAN CORPUSCULAR HGB CONC 31.2 g/dl (32.0-36.5); MEAN CORPUSCULAR VOLUME 81.9 fl (80.0-96.0); MONO # 1.2 10^3/uL (0.0-0.8); MONO % 8.4 % (0.0-5.0); NEUTROPHILS # 12.1 10^3/uL (1.5-8.5); NEUTROPHILS % 86.4 % (36.0-66.0); RED BLOOD COUNT 4.03 10^6/uL (4.00-5.40)
[2019-04-20] MEDS: MORPHINE 4 MG/ML 1ML VIAL/SYRINGE (J2270) IV PRN ×2 (10:07→11:46)
[2019-04-20 10:12] LABS: INR 1.29; PROTHROMBIN TIME 15.8 SECONDS (11.8-14.0)
[2019-04-20 10:23] LABS: PLATELET COUNT, AUTOMATED 1122 10^3/uL (150-450)
[2019-04-20 10:29] LABS: ALBUMIN 1.8 GM/DL (3.2-5.2); ALT/SGPT 26 U/L (12-78); BILIRUBIN,DIRECT 0.1 MG/DL (0.0-0.2); BILIRUBIN,TOTAL 0.3 MG/DL (0.2-1.0); BLOOD UREA NITROGEN 8 MG/DL (7-18); CALCIUM LEVEL 8.8 MG/DL (8.8-10.2); CARBON DIOXIDE LEVEL 26 MEQ/L (21-32); CHLORIDE LEVEL 89 MEQ/L (98-107); CREATININE FOR GFR 0.52 MG/DL (0.55-1.30); GLOMERULAR FILTRATION RATE > 60.0 (>45); GLUCOSE, FASTING 194 MG/DL (70-100); LIPASE 62 U/L (73-393); POTASSIUM SERUM 5.2 MEQ/L (3.5-5.1); SODIUM LEVEL 126 MEQ/L (136-145); TOTAL PROTEIN 6.5 GM/DL (6.4-8.2)
[2019-04-20] MEDS ORDERED: MOM 30ML SUSPENSION UDC PO PRN (11:00)
[2019-04-20] MEDS ORDERED: ACETAMINOPHEN TAB 650MG DOSE (2X325MG) PO PRN (11:00)
[2019-04-20] MEDS ORDERED: NORC1TAB7 PO (11:28)
[2019-04-20] MEDS ORDERED: REGL5TAB2 PO (11:28)
[2019-04-20] MEDS ORDERED: CALCIUM GLUCONATE 1,000 MG in D5W MINI-BAG PLUS 100 ML IV ONE (11:30)
[2019-04-20] MEDS ORDERED: NS 1,000 ML IV SCH (11:32)
[2019-04-20] MEDS ORDERED: NALOXONE INJ 0.4 MG/1 ML VIAL (J2310) IV PRN (11:45)
[2019-04-20] MEDS ORDERED: EPIDURAL/PCA KEYS XX PRN (11:45)
[2019-04-20] MEDS ORDERED: MORPHINE 1MG/ML IN 0.9% NACL 100ML IV BAG IV PRN (11:45)
[2019-04-20] MEDS ORDERED: NALBUPHINE HCL 10 MG/ML AMP (J2300) IV PRN (11:45)
[2019-04-20] MEDS ORDERED: diphenhydrAMINE INJ 50MG/ML VIAL (J1200) IV PRN (11:45)
[2019-04-20] MEDS: ONDANSETRON 4MG/2ML VIAL (J2405) IV SCH ×2 (11:46→18:29)
[2019-04-20] MEDS ORDERED: PROMETHAZINE INJ 25 MG/ML VIAL (J2550) IV SCH (12:00)
[2019-04-20] MEDS ORDERED: SUCROFERRIC OXYHYDROXIDE 500MG CHEW TAB (VELPHORO) PO SCH (12:30)
[2019-04-20 13:08] VITALS: BP 177/111
--- NOTE | 2019-04-20 13:12 | HPE ---
DATE OF ADMISSION: 04/20/2019 PRIMARY CARE PHYSICIAN: Dr. Celina Veliz CHIEF COMPLAINT: Back pain, intractable nausea and vomiting. HISTORY OF PRESENT ILLNESS: This is a 63-year-old female with recent diagnosis of peritoneal mesothelioma with no prior history of asbestos exposure with plans for referral to Dr. Hemal Scales, , at [facility], for debulking surgery to microscopic disease, then with plans for hyperthermic cisplatin treatment with intraperitoneal chemotherapy and then finally possible systemic chemotherapy with cisplatin. The patient had previously been admitted to [facility] on 04/01/2019 and discharged 04/03/2019 for metastatic cancer, increasing abdominal distention, biopsy proven metastatic malignant mesothelioma. The patient has been referred to an outpatient appointment next Saturday with Dr. Scales, when she presented here today with ongoing abdominal distention and pain on her right side rated as 15 out of 10, as well as, increasing abdominal distention with intractable nausea and vomiting 10 to 15 times over the past 12 hours. The patient denies any fever or chills. She usually weighs about 130 pounds with some constipation, generalized fatigue and decrease in appetite. She otherwise denies any fever, chills, diarrhea, dysuria, urgency, frequency, or hematuria. Despite oral Zofran, she has had no relief with the vomiting and presented to the emergency room (ER). She was afebrile with slight white count of 14,000, hyponatremic with sodium of 126, normal bicarbonate of 26, and albumin of 1.8. CT of abdomen and pelvis shows mild right hydroureteronephrosis again noted unchanged from 04/01/2019 secondary to mechanical obstruction of distal ureter due to surrounding malignancy. Extensive diffuse abdominopelvic metastatic disease malignancy, including peritoneal caking, carcinomatosis, ascites, and adenopathy. Mass lesion in the left upper quadrant and scattered mass lesions are suspected. No obvious evidence of bowel obstruction, although the enteric system is severely limited in evaluation. Distended bladder. Poorly evaluated uterus and adnexa. No evidence of abdominal aortic aneurysm. Osseous structures demonstrate degenerative changes without focal abnormality. Lung bases demonstrate right lower lobe, left lower lobe and lingular atelectasis along with small right pleural reaction. Subtle low densities in bilateral kidneys also noted consistent with cysts as on prior exam. The patient has a history of bilateral adrenal adenomas with paroxysmal hypertension in 2008. She had resection of the right adrenal adenoma at [facility] in [place] in 2000. She reported a 22 pound weight loss in the past one and a half months which is unintentional with decrease in appetite and due to increasing abdominal distention and pain, feeling bloated and full. She was admitted to the hospital on 04/01/2019 to 04/03/2019 at [facility] for peritoneal carcinomatosis, abdominal distention, intractable vomiting, without evidence of thoracic disease. PET scan performed on 04/15/2019 as outpatient with followup with Dr. Salvador, medical oncologist, shows hypermetabolic soft tissue focus in upper outer quadrant of the left breast, 3.45 maximum standard uptake of this focus. Asymmetric density or mass lesion with this hypermetabolic uptake measures 1.4 x 2.3 cm with a small to moderate pericardial effusion with extensive infiltrative pattern of hypermetabolic malignant uptake throughout the peritoneum with omental caking, mesenteric adenopathy and left iliac shellie uptake corresponding to CT finding of peritoneal carcinomatosis pattern. Also noted 2 cm hypermetabolic focus of increased uptake in the left breast upper outer quadrant. It should be correlated with mammogram or sonography with biopsy if warranted. A single normal sized anterior mediastinal lymph node with non-hypermetabolic, but visible uptake. No abnormal lung parenchyma or skeletal metastatic uptake is seen. There is pericardial effusion without associated hypermetabolic uptake. On 04/02/2019, left abdominal pass core biopsy was consistent with malignant mesothelioma with immunohistochemical staining for pancytokeratin on blocks A1 and A2 supports the interpretation. Per Dr. Salvador, first step would be debulking surgery. The patient has been referred out to Dr. Scales, however, in light of patient's ongoing symptoms and worsening condition, we are attempting to transfer her to [facility]. PAST MEDICAL HISTORY: 1. Peritoneal mesothelioma diagnosed 04/02/2019. 2. Bilateral adrenal adenomas with right adrenalectomy in 2010. 3. History of paroxysmal hypertension associated with adenomas. 4. Psoriasis. 5. Raynaud syndrome. PAST SURGICAL HISTORY: Bilateral laser surgery to open tear ducts in the past. Ultrasound-guided abdominal mass biopsy showing the malignant mesothelioma 04/02/2019. Adrenalectomy of the right adrenal gland SOCIAL HISTORY: . Lives with . No drugs used. Social alcohol use. No illicit drug use. FAMILY HISTORY: Pituitary tumor in patient's brother. First cousin with stomach cancer. ALLERGIES: PENICILLIN. REVIEW OF SYSTEMS: Per history of present illness (HPI), 12-point system otherwise negative. PHYSICAL EXAMINATION: Temperature 97.4, pulse 73, respiration 20, blood pressure 157/73, 92% on room air. Generally: Patient appears her stated age. No respiratory distress. Patient appears cachectic and bitemporal wasting. No jugular venous distention (JVD). No thyromegaly. No cervical lymphadenopathy. Dry mucous membranes. Poor dentition. Lungs: Diminished with bibasilar crackles. No wheezing, rales. No rhonchi. Air entry is equal bilaterally. Heart: S1, S2. Sinus rhythm. No murmurs, rubs, or gallops. Abdomen is distended. Tender in the right flank with no rebound or guarding. Extremities: No cyanosis, clubbing, or pitting edema. Dorsalis pedis, posterior tibialis bilateral have been noted, 2+. White count 14, hemoglobin 10, hematocrit 33, platelet count 1122. Sodium 126, potassium 5.2, chloride 89, bicarbonate 26, BUN 8, creatinine 0.52, glucose of 194, calcium 8.8, total bilirubin 0.3, direct bilirubin 0.1, AST 32, ALT 26, alkaline phosphatase 212, total protein 6.5, albumin 1.8, lipase 62. Two sets of blood cultures are pending. CT abdomen and pelvis: Mild right hydroureteronephrosis, unchanged compared to 04/01/2019, secondary to gse mechanic obstruction of distal ureter surrounding malignancy. Extensive diffuse abdominopelvic metastatic disease malignancy including peritoneal caking, carcinomatosis, ascites, adenopathy. Mass lesion in left upper quadrant as well as scattered mass lesions suspected. 04/02/2019 left abdominal mass core biopsy consistent with malignant mesothelioma. PET scan, 04/15/2019: There is an extensive infiltrative pattern of hypermetabolic malignant uptake throughout the peritoneum with omental caking, mesenteric adenopathy, and at least left iliac shellie uptake, corresponding to CT finding of peritoneal carcinomatosis pattern. 2 cm hypermetabolic focus of increased uptake left breast upper outer quadrant. Should correlate with sonogram with biopsy if warranted. Single normal-sized anterior mediastinal lymph node with nonhypermetabolic but visible uptake. No abnormal lung parenchymal or skeletal metastatic uptake. There is a pericardial effusion without hypermetabolic uptake. ASSESSMENT AND PLAN: This is a 63-year-old female with history of bilateral adrenal hidroadenoma which were resected with paroxysmal hypertension, presented with a 22 pound weight loss for the past two months as well as increasing abdominal distention, pain. Patient refused a breast exam and mammography, admitted on 04/01/2019, discharged 04/03/2019, due to abdominal pain, found to have malignant mesothelioma with peritoneal carcinomatosis. Patient was seen by Dr. Salvador who recommended referral to Dr. Hemal Scales, at [facility], for debulking surgery. Patient re-presents to the emergency room 04/20/2019 with intractable nausea, vomiting, 10-15 times daily, decreased oral intake, was found to be hyponatremic with unchanged findings on CT abdomen/pelvis. Patient is admitted for observation for the following issues: 1. Intractable nausea, vomiting secondary to peritoneal to peritoneal carcinomatosis due to malignant mesothelioma. Patient is currently on intravenous Phenergan and Zofran, scheduled to 6 hourly as well as pain control with morphine [employer] pumping. Pain management service has been consulted for help in controlling her pain so that she may be discharged in followup with appointment on Saturday. 2. Peritoneal mesothelioma. Patient presents with unusual, rare, very uncommon mesothelioma with no history of asbestos exposure, typically obtained through inhalation and chronic inflammatory response to asbestos. Dr. Salvador has been consulted, but states that firstly, patient needs debulking surgery in order to remove all microscopic disease. Patient's information has been sent to Dr. Hemal Scales, , [facility]. Appointment has been made for next Saturday, but patient's appointment has been moved up to this coming Saturday. Patient and family services (PFS) has been called to help with financial issues in going down to her appointment as well as for coverage for her peritoneal mesothelioma. Previous PET scan shows no involvement in the thorax and in the lungs. The next plan was to complete a hyperthermic intraperitoneal chemotherapy with cisplatinum and a month later potentially systemic chemotherapy with cisplatin and . 3. Mild right hydroureteronephrosis secondary to peritoneal carcinomatosis and peritoneal mesothelioma. Since the creatinine is within normal limits, no immediate need for stent placement. Unchanged from . 4. Hyponatremia. Check serum and urine osmolarity. Most likely secondary to intractable nausea and vomiting. Heavy fluid hydration for now. 5. Cancer cachexia. Body mass index of 23.8. Tool Gr[employer] has been consulted. Unable to obtain a peripherally inserted central catheter (PICC) line and total parenteral nutrition (TPN) since patient is has elevated white count, most likely due to inflammation and malignancy. 6. Hyperkalemia. Patient has received calcium gluconate, been given one Kayexalate. 7. Small pericardial effusion. Obtain a 2D echo. Rule out tamponade. Clinically, does not have any signs of tamponade. No jugular venous distention (JVD) on exam. 8. Diet. Tool Gr[employer] has been consulted. Ensure and regular diet as tolerated. Deep venous thrombosis (DVT) prophylaxis with Lovenox injections. edited: 04/20/2019 1413 tkf edited: 04/20/2019 1530 tkf TORSTEN
[2019-04-20] MEDS ORDERED: NS 1,000 ML IV ONE (13:15)
[2019-04-20] MEDS: PANTOPRAZOLE 40MG INJ (PROTONIX) (C9113) IV SCH (13:58)
[2019-04-20 14:00] VITALS: BP 140/86
[2019-04-20] MEDS ORDERED: MORPHINE 2 MG/ML 1ML VIAL (J2270) IV PRN (14:45)
[2019-04-20] MEDS ORDERED: PERCOCET 5MG/325MG TAB PO PRN (14:45)
[2019-04-20] MEDS ORDERED: MIRALAX *UNIT DOSE* 17GM PACKET PO PRN (14:45)
[2019-04-20] MEDS ORDERED: FLEET ENEMA PR PRN (14:45)
[2019-04-20] MEDS ORDERED: SOD POLYSTYRENE SULFONATE SUSP 15 GM/60 ML UD PO ONE (15:00)
[2019-04-20] MEDS ORDERED: SENN-52 PO (15:11)
[2019-04-20] MEDS ORDERED: PERCOCET PO ×2 (15:11→15:15)
[2019-04-20] MEDS: DOCUSATE SODIUM 100 MG CAP PO SCH ×2 (15:54→20:56)
[2019-04-20] MEDS: PERCOCET 5MG/325MG TAB PO PRN ×2 (15:55→22:08)
--- NOTE | 2019-04-20 16:10 | REP ---
Clinical: Nausea vomiting and abdominal pain. Technique: PA and lateral. Comparison: 04/01/2019. Findings: Mediastinum and cardiac silhouette are normal. Bibasilar atelectasis and small right pleural effusion noted. No pneumothorax. Skeletal structures intact. Impression: Mild bibasilar atelectasis and small right pleural effusion. Electronically Signed by Edi Prado MD 04/20/2019 04:02 P
--- NOTE | 2019-04-20 19:02 | CR ---
DATE OF CONSULTATION: 04/20/2019 CONSULTATION REQUESTED BY: Dr. Selina Regan IDENTIFICATION AND CHIEF COMPLAINT: Shannan Gonzales is a amauri 63-year-old woman with intraperitoneal mesothelioma, admitted via the emergency department earlier today on 04/20/2019 after presenting with severe right-sided back pain rated 10/10 intensity of approximately four hours duration prior to admission. The patient reports "now that I have had the pain medicines I am feeling much better." HISTORY OF PRESENT ILLNESS: Shannan Gonzales is a 63-year-old woman with a past history significant for bilateral adrenal adenomas, complicated by paroxysmal hypertension in the past. She underwent resection of a right renal adrenal adenoma at [facility] in the year 2000, which resulted in improvement, but not complete correction, of her hypertension. She remained clinically stable until the summer, when she noted gradual onset of abdominal pain, nausea, vomiting, and abdominal bloating. She initially presented to the emergency department at [facility] and was admitted to the hospital on 04/01/2019. Scan of the abdomen and pelvis that day documented findings consistent with peritoneal carcinomatosis. CT reported extensive soft tissue infiltration and nodularity along the peritoneal reflection throughout the abdomen, along with pathologic mesenteric lymph nodes. A large heterogenous enhancing mass was noted in the left mid abdomen laterally measuring 9.1 cm x 6.4 cm x 11 cm in overall dimensions. Mildly enlarged lymph node in the epicardial fat measuring 1.5 cm, with thickening of the right hemidiaphragm was seen as well. The patient underwent needle aspiration under ultrasound guidance on 04/02/2019 with histology initiated reported out on 04/07/2019 as poorly differentiated carcinoma. The specimen was later sent to [facility] Pathology Department where a diagnosis of mesothelioma was made. Mrs. Gonzales was subsequently discharged from the hospital on 04/03/2019 and was seen as an outpatient to the medical oncology clinic on 04/09/2019. She had clinically improved with the use of Zofran and metoclopramide, but nausea recurred on 04/15/2019. She was admitted to [facility] in [place], [place]. At which time, CT scanning was repeated. That study showed no significant change from prior imaging, although right-sided hydronephrosis was observed. A PET/CT scan obtained 04/15/2019 as an outpatient showed a single hypermetabolic soft tissue focus in the upper outer quadrant of the left breast that standard uptake value was only 3.45 at that site. However, extensive infiltrative pattern was seen on CT scan corresponding to hypermetabolic malignant uptake throughout the peritoneum with omental caking, mesenteric lymphadenopathy and left iliac node uptake. The patient was hydrated while at [facility] in [place] and then discharged home on 04/17/2019. The patient has been referred to Hemal Scales MD of the department of surgery at [facility]. However, this morning 04/20/2019, the patient experienced excruciating right-sided flank pain radiating to the back and presented to the emergency department at [facility] where she has been admitted. She has been receiving narcotic analgesics, and her pain is now well-controlled. Pain was accompanied by nausea and vomiting and this has also resolved with intravenous Phenergan and Zofran. She has had no fevers, chills, or sweats and she is optimistic now that she has a referral to a tertiary care center. ALLERGIES: There is history of allergy to PENICILLIN. CURRENT MEDICATIONS: - albuterol 2.5 mg nebulizer therapy every four hours as needed for dyspnea - Zofran 8 mg intravenously every eight hours - morphine sulfate by patient controlled analgesic pump PAST MEDICAL HISTORY: The patient has a past history significant for mesothelioma as detailed above. There is history of bilateral adrenal adenomas with right adrenalectomy in 2010. As noted, this was accompanied by paroxysmal hypertension. There is a history of psoriasis and a history of bronchospastic airway disease. There is a history of occluded lacrimal glands and the patient has undergone bilateral laser surgery for this. There is a history of Raynaud's syndrome and the patient is multi-gravid and postmenopausal. 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 Tobacco: The patient has never used tobacco. Alcohol: The patient has never used alcohol regularly. Illicit drugs: There is no history of illicit drug use. FAMILY HISTORY: The patient's father at the age of 51 from a myocardial infarction. The patient's mother at the age of 55 of carcinoma of the throat associated with tobacco use. The patient has a sister who of lung cancer associated with tobacco use and a brother who of a central nervous system tumor at the age of 49. The patient has four children who are healthy. REVIEW OF SYSTEMS: NEUROLOGIC: No history of head trauma, seizure disorder or focal neurologic deficits. There is a past history of headache associated with severe hypertension. RESPIRATORY: Modest shortness of breath intermittently. No cough at this time. No chest pain. No sputum production. CARDIOVASCULAR: No history of myocardial infarction. No exertional chest pressure. No leg edema. No orthopnea. Pericardial effusion was noted on CT scanning. GASTROINTESTINAL: Abdominal pain as noted with recent nausea and vomiting now controlled. The patient moved her bowels on 04/19/2019 but has not moved her bowels on 04/20/2019. There is persistent abdominal distention. No jaundice. HEMATOLOGIC: No history of excessive bleeding or bruising. No prior lymphadenopathy. The patient has had a reactive thrombocytosis since diagnosis. GENITOURINARY: No history of nephrolithiasis. No dysuria. No hematuria. Right-sided hydronephrosis has been observed on imaging. ENDOCRINE: No intolerance of heat or cold. No polyuria, polydipsia, or polyphagia. CONSTITUTIONAL: No recent fevers, chills, or sweats. The remainder of the review of systems was obtained and was negative. PHYSICAL EXAMINATION: The patient is a petite, well-developed, well-nourished woman awake, alert and fully oriented, cooperative, in no distress. Height 157.48 cm. Weight 59 kg. Body surface area 1.62 meters squared. Temperature 97.8, pulse 106, respirations 20, blood pressure 140/86, oxygen saturation 92% on room air. SKIN: Full turgor, anicteric. HEENT: Normocephalic, atraumatic. Pupils round and reactive. Extraocular muscles intact. Sclerae anicteric. Oropharynx without lesions. NECK: Supple without thyromegaly. LYMPHATICS: No pathologic lymphadenopathy noted. BREASTS: Examination deferred at this time. CARDIAC: Regular rhythm. Point of maximal impulse nondisplaced. S1, S2 without gallop, rub, or murmur noted. Full pulses. ABDOMEN: Active bowel sounds, soft, distended without guarding or rebound. The abdomen is mildly tender in the right lower quadrant but without guarding or rebound. PELVIC: Examination deferred. RECTAL Examination deferred. EXTREMITIES: Without clubbing or cyanosis but there is trace edema at this time. NEUROLOGIC: Mental status intact. Cranial nerves intact. Motor and sensory grossly intact. LABORATORY DATA: Sodium depressed at 126, potassium mildly elevated at 5.2, chloride 89, bicarbonate 26, BUN 8, creatinine 0.52 mg/dL, glucose elevated at 194 mg/dL, total bilirubin 0.3 mg/dL, albumin depressed at 1.8 grams/dL, alkaline phosphatase elevated at 212. White blood count 14,000 per microliter, hemoglobin 10.3 grams/dL, hematocrit 33%, platelet count 1,122,000 per microliter. Pathology report from [facility] [place] (pathology number [id number]) reports peritoneal carcinomatosis with malignant mesothelioma. IMPRESSION: 1. Mesothelioma. The patient has a relatively uncommon presentation of mesothelioma with primary peritoneal disease. The etiology of this is unclear as there is no evident exposure history. Regardless, the best outcomes reported have been achieved with debulking surgery followed by chemotherapy, with standard chemotherapy for mesothelioma consistent of nisqually and pemetrexed. The results have been reported with the use of heated intraperitoneal extracorporeal chemotherapy (HIPEC). [facility] has great expertise in managing peritoneal mesothelioma, and the patient has been scheduled for an outpatient evaluation on 04/27/2019. However, by verbal report, the patient may potentially be able to be seen on 04/22/2019. Consequently, every effort should be made to expedite the patient's arrival at [facility] for initial evaluation at that medical center for definitive therapy. 2. Thrombocytosis. The patient has marked thrombocytosis which is overwhelmingly likely to be an inflammatory response. No intervention is require for this other than treatment of the underlying malignancy. 3. Hydronephrosis. The patient has normal renal function at this time, but her kidney function is being threatened. This is likely best addressed by surgical services, and deferring intervention until the patient has been evaluated by the surgical service at [facility] appears the most prudent course of action, unless the creatinine begins to rise quickly. 4. Electrolyte abnormalities. The patient has hyponatremia and hyperkalemia, which may be secondary to pain causing syndrome of inappropriate antidiuretic hormone release, or may be related to her prior adrenal disease. This raises the concern for addisonian syndrome, and should sodium and potassium abnormalities become progressively more severe, then measurement of serum cortisol level and stress-dose steroids should be considered. RECOMMENDATIONS: It is recommended that the patient receive an aggressive bowel regimen to prevent constipation from opioid analgesics. It is also recommended that sodium and potassium be monitored closely and consideration be given to assessing cortisol level and potentially giving cortisol replacement therapy with dosing adjusted for the physiologic stress she is currently under. Deep vein thrombosis prophylaxis has been initiated with enoxaparin, and the medical oncology service will follow the patient while she remains at [facility]. The patient has been referrred to [facility] for evaluation and possible surgical debulking of tumor; ideally, the patient should be seen there as soon as possible, as there is expertise in her disease not present locally. Please feel free to contact the medical oncology service should questions or concerns arise.
--- NOTE | 2019-04-20 19:32 | ECHO ---
DATE OF PROCEDURE: 04/20/2019 REFERRING PHYSICIAN: Dr. Selina Regan INDICATION: Pericardial effusion. Height 158 cm, weight 59 kg. DIMENSIONS: IVS: 1.2 LV: 4.3 LVPW: 1.2 LA: 3.7 Aorta: 3.4 IVC: 1.7 Mitral E wave velocity: 87 A wave: 100 E prime septal: 4.7 E prime lateral: 7.2 FINDINGS: The study is of good technical quality. The patient is in sinus rhythm. Left ventricle is normal size and has hyperdynamic contractility, I estimate left ventricular ejection fraction (LVEF) 70-75%. Mild left ventricular hypertrophy (LVH) is noted. Right ventricle is normal size and systolic function. Both atria appear normal. Aortic valve is mildly sclerotic but has three cusps and preserved mobility. Mitral valve appears grossly normal with minimal mitral annular calcifications. Tricuspid and pulmonic valves appear normal. There is small noncompressive pericardial effusion. Inferior vena cava is normal size and appropriately collapses with respiration indicative of normal central venous pressure (CVP). Aortic root is normal. Aortic arch and abdominal aorta were not well seen. Doppler interrogation of aortic valve reveals no stenosis or insufficiency. There is mild mitral and tricuspid insufficiency. Calculated pulmonary artery pressure is in high 40s or low 50s corresponding to moderate pulmonary hypertension. Trace pulmonic insufficiency is noted. Mitral inflow pattern and tissue Doppler imaging of mitral annulus revealed grade 1 diastolic dysfunction. CONCLUSIONS: 1. Study is of acceptable technical quality. 2. Normal left ventricular (LV) size with mild LVH and hyperdynamic LV systolic function. Grade 1 diastolic dysfunction. 3. No hemodynamically significant valvular disease. 4. Likely normal central venous pressure and moderate pulmonary hypertension. 5. Small noncompressive pericardial effusion. COMMENT: Subacute bacterial endocarditis (SBE) prophylaxis is not recommended.
[2019-04-20 20:15] LABS: BLOOD UREA NITROGEN 9 MG/DL (7-18); CALCIUM LEVEL 8.9 MG/DL (8.8-10.2); CARBON DIOXIDE LEVEL 25 MEQ/L (21-32); CHLORIDE LEVEL 93 MEQ/L (98-107); CREATININE FOR GFR 0.48 MG/DL (0.55-1.30); GLOMERULAR FILTRATION RATE > 60.0 (>45); GLUCOSE, FASTING 162 MG/DL (70-100); MAGNESIUM LEVEL 1.5 MG/DL (1.8-2.4); POTASSIUM SERUM 4.6 MEQ/L (3.5-5.1); SODIUM LEVEL 129 MEQ/L (136-145)
[2019-04-20 20:22] LABS: OSMOLALITY SERUM 267 MOSM/KG (280-301)
[2019-04-20] MEDS: PROMETHAZINE INJ 25 MG/ML VIAL (J2550) IV SCH (20:56)
[2019-04-20 22:00] VITALS: BP 149/87
[2019-04-21] MEDS: ONDANSETRON 4MG/2ML VIAL (J2405) IV SCH ×2 (00:15→06:01)
[2019-04-21] MEDS: NS 1,000 ML IV SCH (00:45)
[2019-04-21] MEDS: PROMETHAZINE INJ 25 MG/ML VIAL (J2550) IV SCH ×2 (03:07→08:30)
[2019-04-21] MEDS: PERCOCET 5MG/325MG TAB PO PRN (04:06)
[2019-04-21 06:00] VITALS: BP 148/87
[2019-04-21 06:08] LABS: HEMOGLOBIN 9.7 g/dl (12.0-15.5); MEAN CORPUSCULAR HEMOGLOBIN 24.8 pg (27.0-33.0); MEAN CORPUSCULAR HGB CONC 30.3 g/dl (32.0-36.5); MEAN CORPUSCULAR VOLUME 81.8 fl (80.0-96.0); RED BLOOD COUNT 3.91 10^6/uL (4.00-5.40); WHITE BLOOD COUNT 17.6 10^3/uL (4.0-10.0)
[2019-04-21 06:11] LABS: PLATELET COUNT, AUTOMATED 1131 10^3/uL (150-450)
[2019-04-21 06:28] LABS: BLOOD UREA NITROGEN 8 MG/DL (7-18); CALCIUM LEVEL 8.7 MG/DL (8.8-10.2); CARBON DIOXIDE LEVEL 25 MEQ/L (21-32); CHLORIDE LEVEL 95 MEQ/L (98-107); CREATININE FOR GFR 0.51 MG/DL (0.55-1.30); GLOMERULAR FILTRATION RATE > 60.0 (>45); GLUCOSE, FASTING 175 MG/DL (70-100); POTASSIUM SERUM 4.1 MEQ/L (3.5-5.1); SODIUM LEVEL 129 MEQ/L (136-145)
[2019-04-21] MEDS: SENOKOT S TAB PO PRN (08:30)
[2019-04-21] MEDS: DOCUSATE SODIUM 100 MG CAP PO SCH ×2 (08:30→20:38)
[2019-04-21] MEDS: IBUPROFEN 600 MG TAB PO PRN ×2 (08:31→20:39)
[2019-04-21] MEDS ORDERED: oxyCODONE 5MG TAB PO PRN ×2 (11:45)
[2019-04-21] MEDS ORDERED: PROCHLORPERAZINE 10 MG/2 ML VIAL (J0780) IV PRN (12:00)
--- NOTE | 2019-04-21 12:50 | IPNPDOC ---
Subjective Date Seen The patient was seen on 04/21/19. Subjective Chief Complaint/HPI continues to have nausea and abdominal pain. Says the percocet and morphine are making her more nauseous. She says had good bowel movements several times 2 days ago. No fever or chills. No chest pain or sob. Objective Physical Examination General Exam: Positive: Alert, Cooperative, Mild Distress Eye Exam: Positive: PERRLA, Conjunctiva & lids normal, EOMI; Negative: Sclera icteric ENT Exam: Positive: Atraumatic, Mucous membr. moist/pink, Pharynx Normal Neck Exam: Positive: Supple; Negative: JVD, thyromegaly Chest Exam: Positive: Clear to auscultation, Normal air movement Heart Exam: Positive: Tachycardic, Regular Rhythm, Normal S1, Normal S2; Negative: Gallops, Murmurs, Rubs Abdomen Exam: Positive: BS Hyperactive, Soft, Tenderness Extremity Exam: Negative: Clubbing, Cyanosis, Edema Skin Exam: Positive: Nl turgor and temperature; Negative: Rash, Breakdown Assessment /Plan Assessment This is a 63-year-old female with history of Peritoneal mesothelioma diagnosed in 04/01/2019 bilateral adrenal adenoma with hypertensive crisises , the right adrenal adenoma was resected in 2000 which were resected which partially corrected her hypertensive episodes, still has chronic hypertension resection of a She remained clinically stable until the summer of 2018, when she noted gradual onset of abdominal pain, nausea, vomiting, and abdominal bloating. She initially presented to the emergency department at [facility] and was admitted to the hospital on 04/01/2019. Scan of the abdomen and pelvis that day documented findings consistent with peritoneal carcinomatosis. CT reported extensive soft tissue infiltration and nodularity along the peritoneal reflection throughout the abdomen, along with pathologic mesenteric lymph nodes. A large heterogenous enhancing mass was noted in the left mid abdomen laterally measuring 9.1 cm x 6.4 cm x 11 cm in overall dimensions. Mildly enlarged lymph node in the epicardial fat measuring 1.5 cm, with thickening of the right hemidiaphragm was seen as well. The patient underwent needle aspiration under ultrasound guidance on 04/02/2019 with histology initiated reported out on 04/07/2019 as poorly differentiated carcinoma. The specimen was later sent to [facility] ([facility] Pathology Department where a diagnosis of mesothelioma was made. Mrs. Gonzales was subsequently discharged from the hospital and followed up at the medical oncology clinic. Patient was seen by Dr. Salvador who recommended referral to Dr. Hemal Scales, at [facility], for debulking surgery. In the meantime patient was admitted at [facility] for abdominal pain , nausea and vomiting where another CT was done which showed similar findings with the addition of a right hydronephrosis. Patient re-presents to our emergency room 04/20/2019 with intractable nausea, vomiting, 10-15 times daily, decreased oral intake, was found to be hyponatremic and hyperkalemic with unchanged findings on CT abdomen/pelvis. Patient is admitted for intractable nausea and vomiting due to peritoneal mesothelioma with electrolyte imbalance. Intractable nausea, vomiting secondary to peritoneal to peritoneal carcinomatosis due to malignant mesothelioma. will try to control with oral meds oxycodone and iv morphine prn. ondansetron odt , benadryl. Will have compazine iv available. Peritoneal mesothelioma. Patient presents with unusual, rare, very uncommon mesothelioma with no history of asbestos exposure, typically obtained through inhalation and chronic inflammatory response to asbestos. Dr. Salvador has been consulted, but states that firstly, patient needs debulking surgery in order to remove all microscopic disease. Patient's information has been sent to Dr. Hemal Scales, , [facility]. Appointment has been moved up to this 04/22/19 at 3 pm. Patient and family services (PFS) has been called to help with financial issues in going down to her appointment as well as for coverage for her peritoneal mesothelioma. Previous PET scan shows no involvement in the thorax and in the lungs. As per Dr Salvador after debulking surgery the next plan is to complete a hyperthermic intraperitoneal chemotherapy with cisplatinum and a month later potentially systemic chemotherapy with cisplatin. Mild right hydroureteronephrosis secondary to peritoneal carcinomatosis and peritoneal mesothelioma. Since the creatinine is within normal limits, no immediate need for stent placement. Unchanged from before. Hyponatremia and hyperkalemia will have to monitor for adrenal insufficiency if continues to be persistently hyponatremic and hyperkalemic will check cortisol levels and may need to replace steroids. Cancer cachexia. Body mass index of 23.8. Retail Consultant has been consulted. Small pericardial effusion. no features of tamponade in Echo Diet. Retail Consultant has been consulted. Ensure and regular diet as tolerated. Thrombocytosis and leucocytosis possibly due to the cancer. Deep venous thrombosis (DVT) prophylaxis with Lovenox injections. Plan/VTE VTE Prophylaxis Ordered?: Yes VS, I&O, 24H, Fishbone Vital Signs/I&O Vital Signs Date Time Temp Pulse Resp B/P (MAP) Pulse Ox O2 Delivery O2 Flow Rate FiO2 04/21/19 06:00 98.3 107 16 148/87 (107) 92 04/20/19 11:35 Room Air I&O- Last 24 Hours up to 6 AM 04/21/19 06:00 Intake Total 4050 ml Output Total 1100 ml Balance 2950 ml Laboratory Data 24H LABS Laboratory Tests 2 04/20/19 14:11: Urine Color STRAW, Urine Appearance CLEAR, Urine pH 6.0, Urine Specific [place] 1.003, Urine Protein NEGATIVE, Urine Glucose (UA) NEGATIVE, Urine Ketones NEGATIVE, Urine Blood NEGATIVE, Urine Nitrite NEGATIVE, Urine Bilirubin NEGATIVE, Urine Urobilinogen 0.2, Urine Leukocyte Esterase NEGATIVE, Urine WBC (Auto) 0, Urine RBC (Auto) 0, Urine Hyaline Casts (Auto) 0, Urine Bacteria (Auto) NEGATIVE, Urine Squamous Epithelial Cells 0, Urine Sperm (Auto) , Urine Random Osmolality 117L 04/20/19 19:42: Anion Gap 11, Glomerular Filtration Rate > 60.0, Osmolality 267L, Calcium Level 8.9, Magnesium Level 1.5L 04/21/19 05:34: Anion Gap 9, Glomerular Filtration Rate > 60.0, Calcium Level 8.7L, Nucleated Red Blood Cells % (auto) 0.0 CBC/BMP Laboratory Tests 04/20/19 19:42 04/21/19 05:34 Microbiology Microbiology 04/20/19 Respiratory Virus Panel (PCR) ([facility]) - Final, Complete 04/20/19 Blood Culture - Preliminary, Resulted No growth after 24 hours . All specim... 04/20/19 Blood Culture - Preliminary, Resulted No growth after 24 hours . All specim... KINJAL HAQ MD Apr 21, 2019 12:50
[2019-04-21] MEDS: ONDANSETRON 4 MG ORAL DISINTEGRATING TAB (Q0162 PER 1MG) SL SCH ×2 (12:59→18:00)
[2019-04-21] MEDS: diphenhydrAMINE 25 MG CAP PO SCH ×2 (12:59→18:00)
[2019-04-21] MEDS: PANTOPRAZOLE 40MG INJ (PROTONIX) (C9113) IV SCH (12:59)
[2019-04-21 14:00] VITALS: BP 168/86
[2019-04-21] MEDS ORDERED: ENOXAPARIN 40 MG/0.4 ML SYRINGE (J1650) SC SCH (21:00)
[2019-04-21 22:00] VITALS: BP 138/85
[2019-04-22] MEDS: ONDANSETRON 4 MG ORAL DISINTEGRATING TAB (Q0162 PER 1MG) SL SCH ×3 (00:54→12:00)
[2019-04-22] MEDS: diphenhydrAMINE 25 MG CAP PO SCH ×3 (00:54→12:00)
[2019-04-22 05:44] LABS: HEMATOCRIT 31.1 % (36.0-47.0); HEMOGLOBIN 9.6 g/dl (12.0-15.5); MEAN CORPUSCULAR HEMOGLOBIN 25.5 pg (27.0-33.0); MEAN CORPUSCULAR HGB CONC 30.9 g/dl (32.0-36.5); MEAN CORPUSCULAR VOLUME 82.5 fl (80.0-96.0); RED BLOOD COUNT 3.77 10^6/uL (4.00-5.40); WHITE BLOOD COUNT 12.5 10^3/uL (4.0-10.0)
[2019-04-22 05:50] LABS: PLATELET COUNT, AUTOMATED 1083 10^3/uL (150-450)
[2019-04-22 06:00] VITALS: BP 129/76
[2019-04-22 06:11] LABS: BLOOD UREA NITROGEN 11 MG/DL (7-18); CALCIUM LEVEL 8.7 MG/DL (8.8-10.2); CARBON DIOXIDE LEVEL 27 MEQ/L (21-32); CHLORIDE LEVEL 96 MEQ/L (98-107); CREATININE FOR GFR 0.62 MG/DL (0.55-1.30); GLOMERULAR FILTRATION RATE > 60.0 (>45); GLUCOSE, FASTING 154 MG/DL (70-100); POTASSIUM SERUM 3.6 MEQ/L (3.5-5.1); SODIUM LEVEL 132 MEQ/L (136-145)
[2019-04-22] MEDS ORDERED: IBUP-1022 PO (07:58)
[2019-04-22] MEDS ORDERED: PEG1POW PO (07:58)
[2019-04-22] MEDS ORDERED: DIPH25CA32 PO (07:58)
[2019-04-22] MEDS ORDERED: ONDA4TAB6 SL (07:58)
[2019-04-22] MEDS ORDERED: OXYC-517 PO (07:58)
[2019-04-22] MEDS ORDERED: SENN8.6T28 PO (07:58)
[2019-04-22] MEDS ORDERED: PANT40TA3 PO (07:58)
[2019-04-22] MEDS: DOCUSATE SODIUM 100 MG CAP PO SCH (10:49)
[2019-04-22] MEDS: IBUPROFEN 600 MG TAB PO PRN (10:50)
[2019-04-22] MEDS: SENOKOT S TAB PO PRN (10:52)
[2019-04-22 11:08] VITALS: BP 118/68
[2019-04-22 11:09] VITALS: BP 118/68
[2019-04-22] MEDS: PANTOPRAZOLE 40MG INJ (PROTONIX) (C9113) IV SCH (12:00)
--- NOTE | 2019-04-23 05:52 | DS.PDOC ---
Discharge Summary General Date of Admission Apr 20, 2019 at 10:56 Date of Discharge 04/22/19 Discharge Summary PROCEDURES PERFORMED DURING STAY: [None]. DISCHARGE DIAGNOSES: Intractable nausea and vomiting due to advanced cancer with peritoneal carcinomatosis Peritoneal Malignant Mesothelioma Right hydroureteronephrosis Cancer cachexia Thrombocytosis and leukocytosis Hyponatremia and hyperkalemia. Hypertension Bilateral adrenal adenoma s/p right resection COMPLICATIONS/CHIEF COMPLAINT: Hydronephrosis Rt. HISTORY OF PRESENT ILLNESS: See history and physical HOSPITAL COURSE: This is a 63-year-old female with history of Peritoneal mesothelioma diagnosed in 04/01/2019 bilateral adrenal adenoma with hypertensive crisises , the right adrenal adenoma was resected in 2000 which were resected which partially corrected her hypertensive episodes, still has chronic hypertension resection of a She remained clinically stable until the summer, when she noted gradual onset of abdominal pain, nausea, vomiting, and abdominal bloating. She initially presented to the emergency department at [facility] and was admitted to the hospital on 04/01/2019. Scan of the abdomen and pelvis that day documented findings consistent with peritoneal carcinomatosis. CT reported extensive soft tissue infiltration and nodularity along the peritoneal reflection throughout the abdomen, along with pathologic mesenteric lymph nodes. A large heterogenous enhancing mass was noted in the left mid abdomen laterally measuring 9.1 cm x 6.4 cm x 11 cm in overall dimens ions. Mildly enlarged lymph node in the epicardial fat measuring 1.5 cm, with thickening of the right hemidiaphragm was seen as well. The patient underwent needle aspiration under ultrasound guidance on 04/02/2019 with histology initiated reported out on 04/07/2019 as poorly differentiated carcinoma. The specimen was later sent to [facility] ([facility] Pathology Department where a diagnosis of mesothelioma was made. Mrs. Gonzales was subsequently discharged from the hospital and followed up at the medical oncology clinic. Patient was seen by Dr. Salvador who recommended referral to Dr. Hemal Scales, at [facility], [phone] for debulking surgery. In the meantime patient was admitted at [facility] for abdominal pain , nausea and vomiting where another CT was done which showed similar findings with the addition of a right hydronephrosis. Patient re-presents to our emergency room 04/20/2019 with intractable nausea, vomiting, 10-15 times daily, decreased oral intake, was found to be hyponatremic and hyperkalemic with unchanged findings on CT abdomen/pelvis. Patient is admitted for intractable nausea and vomiting due to peritoneal mesothelioma with electrolyte imbalance patient was give IVF, electrolytes corrected pain medications and antiemetics changed and ultimately a combination was found which patient could tolerte PO. Pateint's nausea and vomiting got controlled and patient has been able to tolerate some po intake. Patient was instructed to eat small frequent meals. Intractable nausea, vomiting secondary to peritoneal to peritoneal carcinomatosis due to malignant mesothelioma. will try to control with oral meds oxycodone and iv morphine prn. ondansetron odt , benadryl. Will have compazine iv available. Peritoneal mesothelioma. Patient presents with unusual, rare, very uncommon mesothelioma with no history of asbestos exposure, typically obtained through inhalation and chronic inflammatory response to asbestos. Dr. Salvador has been consulted, but states that firstly, patient needs debulking surgery in order to remove all microscopic disease. Patient's information has been sent to Dr. Hemal Scales, , [facility]. Appointment set up for 04/27/19 and transportation was not approved by insuarnce for the prior appointment for 04/22/19 Patient and family services (PFS) has been helping with financial issues in going down to her appointment as well as for coverage for her peritoneal mesothelioma. Previous PET scan shows no involvement in the thorax and in the lungs. As per Dr Salvador after debulking surgery the next plan is to complete a hyperthermic intraperitoneal chemotherapy with cisplatinum and a month later potentially systemic chemotherapy with cisplatin. Mild right hydroureteronephrosis secondary to peritoneal carcinomatosis and peritoneal mesothelioma. Since the creatinine is within normal limits, no immediate need for stent placement. Unchanged from before. Hyponatremia and hyperkalemia hyponatremia most likely due to vomiting will have to monitor for adrenal insufficiency if continues to be persistently hyponatremic and hyperkalemic may need cortisol levels and may need to replace steroids. Cancer cachexia. Body mass index of 23.8. Flitch Hanger has been consulted. Small pericardial effusion. no features of tamponade in Echo Diet. Flitch Hanger has been consulted. Ensure and regular diet as tolerated. Thrombocytosis and leucocytosis possibly due to the cancer. DISCHARGE MEDICATIONS: Please see below. ALLERGIES: Please see below. PHYSICAL EXAMINATION ON DISCHARGE: VITAL SIGNS: Please see below. General Exam: Positive: Alert, Cooperative, Mild Distress Eye Exam: Positive: PERRLA, Conjunctiva & lids normal, EOMI; Negative: Sclera icteric ENT Exam: Positive: Atraumatic, Mucous membr. moist/pink, Pharynx Normal Neck Exam: Positive: Supple; Negative: JVD, thyromegaly Chest Exam: Positive: Clear to auscultation, Normal air movement Heart Exam: Positive: Tachycardic, Regular Rhythm, Normal S1, Normal S2; Negative: Gallops, Murmurs, Rubs Abdomen Exam: Positive: BS Hyperactive, Soft, Tenderness Extremity Exam: Negative: Clubbing, Cyanosis, Edema Skin Exam: Positive: Nl turgor and temperature; Negative: Rash, Breakdown LABORATORY DATA: Please see below. PROGNOSIS: Guarded ACTIVITY: [As tolerated]. DIET: As tolerated DISPOSITION: 01 Home, Self-Care. DISCHARGE INSTRUCTIONS: Follow up PMD in 1 to 2 week Follow up with [facility] in [facility] on 04/27/19 DISCHARGE CONDITION: [Stable]. TIME SPENT ON DISCHARGE: 35 minutes. Vital Signs/I&Os Vital Signs Date Time Temp Pulse Resp B/P (MAP) Pulse Ox O2 Delivery O2 Flow Rate FiO2 04/22/19 11:09 97.5 104 14 118/68 100 Room Air I&O- Last 24 Hours up to 6 AM 04/23/19 06:00 Intake Total 1020 ml Output Total 1250 ml Balance -230 ml Laboratory Data CBC/BMP Item Value Date Time White Blood Count 12.5 10^3/uL H 04/22/19523 Red Blood Count 3.77 10^6/uL L 04/22/19523 Hemoglobin 9.6 g/dl L 04/22/19523 Hematocrit 31.1 % L 04/22/1924 Mean Corpuscular Volume 82.5 fl 04/22/19523 Mean Corpuscular Hemoglobin 25.5 pg L 04/22/19523 Mean Corpuscular Hemoglobin Concent 30.9 g/dl L 04/22/19523 Red Cell Distribution Width 15.2 % H 04/22/19523 Platelet Count 1083 10^3/uL H 04/22/19523 Sodium Level 132 MEQ/L L 04/22/19523 Potassium Level 3.6 MEQ/L 04/22/19 0524 Chloride Level 96 MEQ/L L 04/22/19 0524 Carbon Dioxide Level 27 MEQ/L 04/22/19 0524 Anion Gap 9 MEQ/L 04/22/19 0524 Blood Urea Nitrogen 11 MG/DL 04/22/19 0524 Creatinine 0.62 MG/DL 04/22/19 0524 Glomerular Filtration Rate > 60.0 04/22/19 0524 Fasting Glucose 154 MG/DL H 04/22/19 0524 Calcium Level 8.7 MG/DL L 04/22/19 0524 Total Bilirubin 0.3 MG/DL 04/20/19 0931 Direct Bilirubin 0.1 MG/DL 04/20/19 0931 Aspartate Amino Transf (AST/SGOT) 32 U/L 04/20/19 0931 Alanine Aminotransferase (ALT/SGPT) 26 U/L 04/20/19 0931 Alkaline Phosphatase 212 U/L H 04/20/19 0931 Total Protein 6.5 GM/DL 04/20/19 0931 Albumin 1.8 GM/DL L 04/20/19 0931 Albumin/Globulin Ratio 0.38 L 04/20/19 0931 Lipase 62 U/L L 04/20/19 0931 Microbiology Microbiology 04/20/19 Respiratory Virus Panel (PCR) ([facility]) - Final, Complete 04/20/19 Blood Culture - Preliminary, Resulted No Growth after 48 hours. All Specime... 04/20/19 Blood Culture - Preliminary, Resulted No Growth after 48 hours. All Specime... Discharge Medications Scheduled Diphenhydramine HCl (Diphenhydramine HCl) 25 Mg Capsule, 25 MG PO Q8H Docusate Sodium (Docusate Sodium) 100 Mg Capsule, 100 MG PO BID, (Reported) Magnesium Oxide (Magnesium Oxide) 400 Mg Tablet, 400 MG PO BID, (Reported) Metoclopramide Hcl (Reglan) 5 Mg Tablet, 5 MG PO ACHS, (Reported) Multivitamin with Minerals (One Daily Energy) 1 Each Tablet, 1 TAB PO DAILY, (Reported) Ondansetron (Ondansetron Odt) 4 Mg Tab.rapdis, 4 MG SL Q8H Pantoprazole Sodium (Pantoprazole Sodium) 40 Mg Tablet.dr, 1 TAB PO DAILY Sennosides (Senna) 8.6 Mg Tablet, 1 TAB PO BID Scheduled PRN Albuterol Sulf (Albuterol Sulfate) 2.5 Mg/3 Ml Vial.neb, 1 VIAL NEB Q4H PRN for SOB/WHEEZING, (Reported) Ibuprofen (Ibuprofen) 600 Mg Tablet, 600 MG PO Q12HP PRN for MODERATE PAIN (PS 5-7) Oxycodone HCl (Oxycodone HCl) 5 Mg Tablet, 1-2 MG PO Q6HP PRN for PAIN Polyethylene Glycol 3350 (Polyethylene Glycol 3350) 17 Gm Powd.pack, 1 PKT PO DAILYPRN PRN for CONSTIPATION Allergies Coded Allergies: Penicillins (Verified Allergy, Unknown, 04/01/19) KINJAL HAQ MD Apr 23, 2019 05:52
== END 2019-04-22 14:05 | disposition home or self-care (01) | DRG 861 ==
LOC: M ED 08:27 → M ED INP 10:56 → M MSPAV 13:11
PROVIDERS: ADMIT General Practice; ATTEND Internal Medicine Nephrology
DX: G89.3 Neoplasm related pain (acute) (chronic) (principal); R64 Cachexia; C45.1 Mesothelioma of peritoneum; C79.89 Secondary malignant neoplasm of other specified sites; I31.3 Pericardial effusion (noninflammatory); N13.1 Hydronephrosis with ureteral stricture, not elsewhere classified; E87.1 Hypo-osmolality and hyponatremia; E87.5 Hyperkalemia; L40.9 Psoriasis, unspecified; I73.00 Raynaud's syndrome without gangrene; R11.2 Nausea with vomiting, unspecified; D47.3 Essential (hemorrhagic) thrombocythemia; I10 Essential (primary) hypertension; Z88.0 Allergy status to penicillin; Z79.899 Other long term (current) drug therapy

== ENCOUNTER 2019-05-06 20:43 | Inpatient (IN) | payer OTHER ==
[~2019-05-06] VITALS: Ht 157.5 cm; Wt 60.2 kg
[~2019-05-06 20:43] MED LIST changes: +DIPH25CA32 PO; +DOCU100C16 PO; +FAMO1TAB11; +IBUP-1022 PO; +MAGN400T2 PO; +NORC1TAB7 PO; +ONDA4TAB6 SL; +OXYC-517 PO; +PANT40TA3 PO; +PEG1POW PO; +PERCOCET PO; +SENN-52 PO; +SENN8.6T28 PO
[2019-05-06] MEDS ORDERED: LASI20TA3 PO (21:10)
[2019-05-06] MEDS ORDERED: LEVO50TA5 PO (21:10)
[2019-05-06] MEDS ORDERED: HYDROCORTISONE 100 MG/2 ML VIAL (J1720 PER 1) IV ONE (21:15)
[2019-05-06] MEDS ORDERED: NS 1,000 ML IV ONE (21:15)
[2019-05-06] MEDS ORDERED: METOCLOPRAMIDE INJ 10MG/2ML VIAL (J2765) IV ONE (21:15)
[2019-05-06 21:41] LABS: BASO % 0.1 % (0.0-1.0); EOS % 0.1 % (0.0-3.0); HEMATOCRIT 31.6 % (36.0-47.0); HEMOGLOBIN 9.8 g/dl (12.0-15.5); LYMPH # 0.6 10^3/uL (1.5-5.0); LYMPH % 3.5 % (24.0-44.0); MEAN CORPUSCULAR HEMOGLOBIN 24.8 pg (27.0-33.0); MONO # 1.6 10^3/uL (0.0-0.8); MONO % 8.8 % (0.0-5.0); NEUTROPHILS # 15.2 10^3/uL (1.5-8.5); NEUTROPHILS % 86.2 % (36.0-66.0); RED BLOOD COUNT 3.95 10^6/uL (4.00-5.40); WHITE BLOOD COUNT 17.6 10^3/uL (4.0-10.0)
[2019-05-06 21:43] LABS: PLATELET COUNT, AUTOMATED 1105 10^3/uL (150-450)
[2019-05-06] MEDS ORDERED: MORPHINE 4 MG/ML 1ML VIAL/SYRINGE (J2270) IV ONE (22:00)
[2019-05-06] MEDS ORDERED: HYDROMORPHONE HCL 0.5 MG/ 0.5 ML SYRINGE (J1170 PER 1) IV ONE (22:00)
[2019-05-06 22:06] LABS: ALT/SGPT 14 U/L (12-78); BILIRUBIN,DIRECT 0.1 MG/DL (0.0-0.2); BILIRUBIN,TOTAL 0.2 MG/DL (0.2-1.0); BLOOD UREA NITROGEN 13 MG/DL (7-18); CALCIUM LEVEL 6.7 MG/DL (8.8-10.2); CARBON DIOXIDE LEVEL 23 MEQ/L (21-32); CHLORIDE LEVEL 97 MEQ/L (98-107); CREATININE FOR GFR 0.42 MG/DL (0.55-1.30); GLOMERULAR FILTRATION RATE > 60.0 (>45); GLUCOSE, FASTING 140 MG/DL (70-100); LIPASE 57 U/L (73-393); POTASSIUM SERUM 3.4 MEQ/L (3.5-5.1); SODIUM LEVEL 130 MEQ/L (136-145); TOTAL PROTEIN 5.5 GM/DL (6.4-8.2)
[2019-05-06] MEDS ORDERED: ONDA4TAB5 PO (23:13)
[2019-05-06] MEDS ORDERED: PANT-23 PO (23:13)
[2019-05-06] MEDS ORDERED: OXYC-517 PO (23:13)
[2019-05-06] MEDS ORDERED: MIRA1POW3 PO (23:13)
[2019-05-06] MEDS ORDERED: FURO20TA2 PO (23:13)
[2019-05-06] MEDS ORDERED: SENN1TAB8 PO (23:13)
[2019-05-06] MEDS ORDERED: ISOVUE-370 76% 100ML VIAL (Q9967) As Ordered ONE (23:17)
--- NOTE | 2019-05-07 00:14 | REPVR ---
PROCEDURE INFORMATION: Exam: CT Abdomen And Pelvis With Contrast Exam date and time: 05/06/2019 10:40 PM Age: 63 years old Clinical indication: Abdominal pain; Generalized; Additional Info: distention pain. Mesothelioma. Nausea, vomiting and abdominal distention. TECHNIQUE: Imaging protocol: Computed tomography of the abdomen and pelvis with intravenous contrast. Radiation optimization: All CT scans at this facility use at least one of these dose optimization techniques: automated exposure control; mA and/or kV adjustment per patient size (includes targeted exams where dose is matched to clinical indication); or iterative reconstruction. Contrast material: ISO; Contrast volume: 100 ml; Contrast route: AC; COMPARISON: CT ABD PELVIS W/O CONTRAST 04/20/2019 9:04:[address] ABD/PEL W/IV CONTRAST ONLY 04/01/2019 3:31 PM FINDINGS: Lungs: Scattered subsegmental atelectasis in the lung bases. Mediastinum: Diffuse thickening of the visualized esophagus. Liver: Normal. No mass. Gallbladder and bile ducts: CBD measures 7 mm in diameter. Gallbladder is distended. No gallbladder wall thickening. Pancreas: Normal. No ductal dilation. Spleen: Normal. No splenomegaly. Adrenals: Right adrenal gland is not visualized. Nodule in the left adrenal nodule measuring 2.2 x 1.3 cm. Kidneys and ureters: Moderate right hydronephrosis. No left hydronephrosis. Mild perinephric stranding bilaterally. Cyst in the upper pole of the left kidney measuring 7 mm which is unchanged from prior. Stomach and bowel: No obstruction. No mucosal thickening. Many of the colonic and small bowel loops are partially encased by implants. Appendix: The appendix is not seen. However, there is no evidence of appendicitis. Intraperitoneal space: Moderate ascites. Diffuse peritoneal implants. Diffuse nodular infiltration of the omentum. Numerous nodules in the mesentery. Vasculature: Moderate atherosclerotic disease. No aortic aneurysm. Lymph nodes: Several epicardial nodes. Largest node measuring 11 x 19 mm in the right epicardial region. Bladder: Unremarkable as visualized. Reproductive: Uterus and adnexa are encased by soft tissue thickening. Bones/joints: Mild degenerative spine. No acute fracture. Soft tissues: Unremarkable. IMPRESSION: 1. Diffuse thickening of the visualized esophagus. Consistent with esophagitis. 2. No evidence of bowel obstruction. 3. Moderate ascites. Increased from prior. 4. Uterus and adnexa are encased by soft tissue thickening. Unchanged from prior. 5. Moderate right hydronephrosis. Unchanged from prior. 6. Diffuse intraperitoneal implants and nodules. Consistent with metastatic disease. Unchanged from 04/20/2019. However, there is overall progression of metastatic disease from 04/01/2019. 7. Left adrenal nodule. Unchanged from prior. 8. Additional findings as described. COMMENT: Verbally discussed with Dr. KAPLAN at 05/07/2019 12:08 AM EST. Electronically signed by: Zahraa Noe On 05/07/2019 00:14:25 AM
[2019-05-07] MEDS ORDERED: PANTOPRAZOLE 40MG INJ (PROTONIX) (C9113) IV ONE (00:30)
[2019-05-07] MEDS ORDERED: ONDANSETRON 4MG/2ML VIAL (J2405) IV ONE (00:30)
[2019-05-07] MEDS ORDERED: SIME180C PO (00:39)
[2019-05-07] MEDS ORDERED: SIME125C4 PO (00:39)
[2019-05-07] MEDS ORDERED: HYDROMORPHONE HCL 0.5 MG/ 0.5 ML SYRINGE (J1170 PER 1) IV ONE (00:45)
[2019-05-07] MEDS ORDERED: NS 1,000 ML IV SCH (01:30)
[2019-05-07] MEDS ORDERED: DOCUSATE SODIUM 100 MG CAP PO PRN (01:45)
[2019-05-07] MEDS ORDERED: METOCLOPRAMIDE 5 MG TAB PO PRN (01:45)
[2019-05-07] MEDS ORDERED: MIRALAX *UNIT DOSE* 17GM PACKET PO PRN (01:45)
[2019-05-07 02:28] VITALS: BP 117/58
--- NOTE | 2019-05-07 02:47 | HPEPDOC ---
[facility] Medical History & Physical Date of Admission May 07, 2019 Date of Service: May 07, 2019 Attending Physician: YORDAN RIVERA DO History and Physical CHIEF COMPLAINT: Nausea, vomiting, abdominal pain HISTORY OF PRESENT ILLNESS: Patient is a 63 year old female with a past medical history significant for a recent diagnosis of peritoneal mesothelioma, bilateral adrenal adenomas with right adrenalectomy in 2010, Raynaud syndrome, and psoriasis who presented to the [facility] emergency department with intractable nausea, vomiting, and abdominal pain. The patient stated that a few days ago she had a paracentesis performed. She stated that she developed abdominal pain over the next few days. Yesterday she developed nausea and vomiting which has been persistent. She stated that she was unable to tolerate anything by mouth. She currently denies any fevers or chills. She states that she does get night sweats. She denies any unintentional weight loss however does admit to weight gain when she accumulates fluid in her abdomen and extremities. She denies any shortness of breath or chest pain. In the ER the patient was found to be afebrile, tachycardiac, and normotensive. She received an abdominal pelvis CT which demonstrated diffuse thickening of the esophagus, moderate ascites, right hydronephrosis, and soft tissue thickening of the uterus and adnexa, diffuse intraperitoneal implants and nodules consistent with metastatic disease, and a left adrenal nodule. The patient received antiemetics and parakinetics with improvement in her nausea and vomiting. Hospitalist service was consulted for further evaluation and management of the patient. PAST MEDICAL HISTORY: 1. Peritoneal mesothelioma diagnosed on 04/02/2019 2. Bilateral adrenal adenomas with right adrenalectomy in 2010 3. Hypertension associated with adenomas 4. Psoriasis 5. Raynaud Syndrome PAST SURGICAL HISTORY: 1. Bilateral Laser surgery for blocked tear ducts 2. U/S Guided abdominal mass biopsy showing malignant mesothelioma on 04/02/2019 3. Right sided adrenalectomy 4. Therapeutic Paracentesis 5. Left Breast Biopsy 6. Tubal Ligation SOCIAL HISTORY: Patient is and lives at home with her . She is fairly independent with her ADLs. She is nonsmoker. She denies any history of alcohol use. She denies any IV or illicit drug use. 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 Her father at the age of 51 from a myocardial infarction. She has 4 children all of whom are alive and well ALLERGIES: Please see below. REVIEW OF SYSTEMS: CONSTITUTIONAL: Denies fevers or chills. Admits to night sweats. Admits to w eight gain. Denies unintentional weight loss HEENT: Admits to some discomfort with swallowing. Denies any changes in her vision. Denies any choking CARDIOVASCULAR: Denies chest pain, palpitations, or feelings of the heart racing RESPIRATORY: Denies shortness of breath, coughing or wheezing GASTROINTESTINAL: Admits to abdominal pain in the left upper abdomen. Admits to nausea and vomiting. Denies diarrhea or constipation but admits to 7 episodes of formed stool today. She denies any blood in her stool or dark tarry stools GENITOURINARY: Denies any dysuria, increased frequency, or urgency SKIN: Denies any rashes or lesions MUSCULOSKELETAL: Patient denies any muscle weakness NEUROLOGICAL: Denies any changes in speech, gait, or balance PSYCHIATRIC: Denies any feelings of anxiety or depression ENDOCRINE: Denies heat intolerance or cold intolerance HEMATOLOGIC/LYMPHATIC: Denies easy bruising or bleeding HOME MEDICATIONS: Please see below. PHYSICAL EXAMINATION: VITAL SIGNS: Temperature 97, pulse 76, respiratory rate 16, blood pressure 175/84 , pulse oximetry 96% on 2L NC GENERAL APPEARANCE: Patient is awake, alert, and oriented. She is lying in bed comfortably. She does not appear to be in any acute distress HEENT: Atraumatic, normocephalic. eyes are nonicteric. Trachea is midline. Mucous membranes are slightly dry. Dentition is fair. Mallampati class III CARDIOVASCULAR: Normal S1, S2. Regular rate and rhythm. No clicks rubs, or murmurs. No displacement of the PMI. LUNGS: Clear vesicular breath sounds bilaterally with good respiratory effort. No wheezes, rhonchi, or rales. Symmetric chest expansion ABDOMEN: Distended with a positive fluid shift. There is subcutaneous bruising in the lower abdomen. There is a puncture site in the left upper quadrant from patients previous abdominal biopsy. There is no redness around the puncture site. There are no palpable masses. There is tenderness in the left upper quadrant. No rebound tenderness or guarding. Normoactive bowel sounds throughout MUSCULOSKELETAL: 5/5 muscle strength testing in bilateral upper and lower extremities EXTREMITIES: 2+ nonpitting edema in bilateral lower extremities. Full and equal pulses in bilateral upper and lower extremities NEUROLOGICAL: No focal neurological deficits PSYCHIATRIC: Mood and affect appear appropriate LABORATORY DATA: See below. IMAGING: PROCEDURE INFORMATION: Exam: CT Abdomen And Pelvis With Contrast Exam date and time: 05/06/2019 10:40 PM Age: 63 years old Clinical indication: Abdominal pain; Generalized; Additional Info: distention pain. Mesothelioma. Nausea, vomiting and abdominal distention. TECHNIQUE: Imaging protocol: Computed tomography of the abdomen and pelvis with intravenous contrast. Radiation optimization: All CT scans at this facility use at least one of these dose optimization techniques: automated exposure control; mA and/or kV adjustment per patient size (includes targeted exams where dose is matched to clinical indication); or iterative reconstruction. Contrast material: ISO; Contrast volume: 100 ml; Contrast route: AC; COMPARISON: CT ABD PELVIS W/O CONTRAST 04/20/2019 9:04:[address] ABD/PEL W/IV CONTRAST ONLY 04/01/2019 3:31 PM FINDINGS: Lungs: Scattered subsegmental atelectasis in the lung bases. Mediastinum: Diffuse thickening of the visualized esophagus. Liver: Normal. No mass. Gallbladder and bile ducts: CBD measures 7 mm in diameter. Gallbladder is distended. No gallbladder wall thickening. Pancreas: Normal. No ductal dilation. Spleen: Normal. No splenomegaly. Adrenals: Right adrenal gland is not visualized. Nodule in the left adrenal nodule measuring 2.2 x 1.3 cm. Kidneys and ureters: Moderate right hydronephrosis. No left hydronephrosis. Mild perinephric stranding bilaterally. Cyst in the upper pole of the left kidney measuring 7 mm which is unchanged from prior. Stomach and bowel: No obstruction. No mucosal thickening. Many of the colonic and small bowel loops are partially encased by implants. Appendix: The appendix is not seen. However, there is no evidence of appendicitis. Intraperitoneal space: Moderate ascites. Diffuse peritoneal implants. Diffuse nodular infiltration of the omentum. Numerous nodules in the mesentery. Vasculature: Moderate atherosclerotic disease. No aortic aneurysm. Lymph nodes: Several epicardial nodes. Largest node measuring 11 x 19 mm in the right epicardial region. Bladder: Unremarkable as visualized. Reproductive: Uterus and adnexa are encased by soft tissue thickening. Bones/joints: Mild degenerative spine. No acute fracture. Soft tissues: Unremarkable. IMPRESSION: 1. Diffuse thickening of the visualized esophagus. Consistent with esophagitis. 2. No evidence of bowel obstruction. 3. Moderate ascites. Increased from prior. 4. Uterus and adnexa are encased by soft tissue thickening. Unchanged from prior. 5. Moderate right hydronephrosis. Unchanged from prior. 6. Diffuse intraperitoneal implants and nodules. Consistent with metastatic disease. Unchanged from 04/20/2019. However, there is overall progression of metastatic disease from 04/01/2019. 7. Left adrenal nodule. Unchanged from prior. 8. Additional findings as described. COMMENT: Verbally discussed with Dr. KAPLAN at 05/07/2019 12:08 AM EST. Electronically signed by: Zahraa Noe On 05/07/2019 00:14:25 AM MICROBIOLOGY: Please see below. ASSESSMENT: Patient is a 63 year old female with a recent diagnosis of peritoneal mesothelioma who presented with complaint of abdominal pain and nausea and vomiting found to be tachycardic with an elevated WBC. . PLAN: 1. Abdominal Pain possible 2/2 Peritonitis -Patient has ascites likely from her metastatic mesothelioma. Patient now presenting with abdominal pain, leukocytosis, and tachycardia. Concerning for peritonitis. Patient did have recent biopsy of her abdomen -Patient will be started on Cefepime as peritonitis can not be ruled out. Paracentesis for peritoneal fluid analysis has been ordered -Will trend white count. 2. Intractable Nausea and vomiting -Likely secondary to patients metastatic cancer. However, in setting of ascites may be related to peritonitis. Will provide Zofran and Reglan. -IV fluids as patient has been unable to tolerate PO 3. Esophagitis -Patient likely has esophagitis from imaging on CT. She does have some esophageal discomfort. She has been on PPI outpatient for this. -Will start Protonix IV 4. Metastatic Mesothelioma -Patient has recent diagnosis of mesothelioma. Patient is followed by Oncology. -Consultation with Oncology 5. Hypokalemia -Patient is hypokalemic likely secondary to vomiting -Will replace IV as patient is unable to tolerate PO. -Will monitor and replace PRN 6. DVT prophylaxis -Heparin SQ IYordan, have independently examined this patient and performed my own physical exam, as well as reviewed the documentation and edited where necessary. I have discussed in detail with the resident / student the findings and plan of treatment as documented by the resident / student and edited their note. I agree with their findings and treatment plan and have edited their documentation. I will continue to follow the patient during this hospital stay. Vital Signs Vital Signs Date Time Temp Pulse Resp B/P (MAP) Pulse Ox O2 Delivery O2 Flow Rate FiO2 05/07/19 01:35 14 94 Nasal Cannula 2.0 05/07/19 00:29 108 175/84 (114) 05/06/19 20:43 97.0 Laboratory Data Labs 24H Laboratory Tests 2 05/06/19 21:19: Immature Granulocyte % (Auto) 1.3, Neutrophils (%) (Auto) 86.2H, Lymphocytes (%) (Auto) 3.5L, Monocytes (%) (Auto) 8.8H, Eosinophils (%) (Auto) 0.1, Basophils (%) (Auto) 0.1, Neutrophils # (Auto) 15.2H, Lymphocytes # (Auto) 0.6L, Monocytes # (Auto) 1.6H, Eosinophils # (Auto) 0.0, Basophils # (Auto) 0.0, Nucleated Red Blood Cells % (auto) 0.0, Anion Gap 10, Glomerular Filtration Rate > 60.0, Lactic Acid Level 1.6, Calcium Level 6.7L, Total Bilirubin 0.2, Direct Bilirubin 0.1, Aspartate Amino Transf (AST/SGOT) 24, Alanine Aminotransferase (ALT/SGPT) 14, Alkaline Phosphatase 266H, Total Protein 5.5L, Albumin 1.0L, Albumin/Globulin Ratio 0.22L, Lipase 57L, Cortisol Baseline 34.6H 05/07/19 01:45: CBC/BMP Laboratory Tests 05/06/19 21:19 Microbiology Microbiology 05/07/19 Blood Culture, Received Pending Home Medications Scheduled Furosemide (Furosemide) 20 Mg Tablet, 20 MG PO Q2D Magnesium Oxide (Magnesium Oxide) 400 Mg Tablet, 400 MG PO BID Multivitamin with Minerals (One Daily Energy) 1 Each Tablet, 1 TAB PO DAILY Pantoprazole Sodium (Pantoprazole Sodium) 40 Mg Tablet.dr, 40 MG PO DAILY Scheduled PRN Docusate Sodium (Docusate Sodium) 100 Mg Capsule, 100 MG PO BID PRN for CONSTIPATION Metoclopramide Hcl (Reglan) 5 Mg Tablet, 5 MG PO ACHS PRN for NAUSEA Ondansetron HCl (Ondansetron HCl) 4 Mg Tablet, 4 MG PO Q6H PRN for NAUSEA Oxycodone HCl (Oxycodone HCl) 5 Mg Tablet, 5 MG PO QID PRN for PAIN Polyethylene Glycol 3350 (Miralax) 17 Gm Powd.pack, 17 GM PO DAILY PRN for CONSTIPATION Sennosides (Senna) 8.6 Mg Tablet, 8.6 MG PO DAILY PRN for CONSTIPATION Simethicone (Gas-X) 125 Mg Capsule, 125 MG PO PCHS PRN for DYSPEPSIA Allergies Coded Allergies: Penicillins (Verified Allergy, Unknown, HIVES / RASH, 05/07/19) A-FIB/CHADSVASC A-FIB History Current/History of A-Fib/PAF?: No DEB PINK DO May 07, 2019 02:47 YORDAN RIVERA DO May 08, 2019 06:15
[2019-05-07 02:52] LABS: MAGNESIUM LEVEL 1.4 MG/DL (1.8-2.4)
[2019-05-07] MEDS: CEFEPIME HCL 2 GM in D5W MINI-BAG PLUS 50 ML IV SCH ×3 (03:03→18:00)
[2019-05-07] MEDS: MORPHINE 2 MG/ML 1ML VIAL (J2270) IV PRN ×3 (03:25→21:03)
[2019-05-07] MEDS: ONDANSETRON 4MG/2ML VIAL (J2405) IV PRN ×3 (03:25→21:03)
[2019-05-07] MEDS: KCL 10MEQ/100ML SWI (KRUN) 10 MEQ in IV 1 EA IV SCH ×2 (03:47→04:53)
[2019-05-07] MEDS: METOCLOPRAMIDE INJ 10MG/2ML VIAL (J2765) IV SCH ×3 (05:28→18:00)
[2019-05-07 06:01] VITALS: BP 125/80
[2019-05-07] MEDS ORDERED: POTASSIUM CHLORIDE 10 MEQ SR TABLET PO ONE (08:30)
[2019-05-07] MEDS: MAGNESIUM OXIDE 400 MG TAB (MAG-OX) PO SCH ×2 (08:56→21:03)
[2019-05-07] MEDS: HEPARIN SOD (PORCINE) 5000 UNITS/ML VIAL SC SCH ×2 (08:56→21:02)
[2019-05-07] MEDS: PANTOPRAZOLE 40MG INJ (PROTONIX) (C9113) IV SCH ×2 (08:57→21:03)
[2019-05-07] MEDS: MAG SULF 1GM/100ML (MAG RUN) 1 GM in IV 1 EA IV SCH ×4 (08:57→12:57)
[2019-05-07] MEDS ORDERED: PANTOPRAZOLE 40MG INJ (PROTONIX) (C9113) IV SCH (09:00)
[2019-05-07 09:56] LABS: HEMATOCRIT 32.2 % (36.0-47.0); HEMOGLOBIN 9.7 g/dl (12.0-15.5); MEAN CORPUSCULAR HEMOGLOBIN 24.6 pg (27.0-33.0); MEAN CORPUSCULAR HGB CONC 30.1 g/dl (32.0-36.5); MEAN CORPUSCULAR VOLUME 81.7 fl (80.0-96.0); RED BLOOD COUNT 3.94 10^6/uL (4.00-5.40); WHITE BLOOD COUNT 16.2 10^3/uL (4.0-10.0)
[2019-05-07 10:05] LABS: PLATELET COUNT, AUTOMATED 1120 10^3/uL (150-450)
[2019-05-07 10:48] LABS: ALBUMIN 1.2 GM/DL (3.2-5.2); ALT/SGPT 14 U/L (12-78); BILIRUBIN,TOTAL 0.2 MG/DL (0.2-1.0); BLOOD UREA NITROGEN 15 MG/DL (7-18); CALCIUM LEVEL 8.2 MG/DL (8.8-10.2); CARBON DIOXIDE LEVEL 28 MEQ/L (21-32); CHLORIDE LEVEL 91 MEQ/L (98-107); CREATININE FOR GFR 0.55 MG/DL (0.55-1.30); GLOMERULAR FILTRATION RATE > 60.0 (>45); GLUCOSE, FASTING 147 MG/DL (70-100); POTASSIUM SERUM 4.4 MEQ/L (3.5-5.1); SODIUM LEVEL 128 MEQ/L (136-145); TOTAL PROTEIN 6.2 GM/DL (6.4-8.2)
[2019-05-07] MEDS: SUCRALFATE SUSP 1GM/10ML UD PO SCH ×2 (11:50→18:00)
[2019-05-07 14:00] VITALS: BP 126/79
--- NOTE | 2019-05-07 17:50 | IPNPDOC ---
Date Seen The patient was seen on 05/07/19. Progress Note SUBJECTIVE: 63 y.o female w/ PMH of peritoneal mesothelioma, Raynaud's & HTN is admitted for intractable nausea & vomiting along with worsening abdominal pain. She was recently diagnosed w/ her malignancy, followed up at [facility], underwent laparoscopy with repeat biopsy & removal of 5L of Ascitic fluid (less than a week ago). She was also admitted recently at [facility] for intractable N/V secondary to her malignancy. She reports increased abdominal distension over the past few days, inability to tolerate any oral intake with worsening nausea/vomiting. She is being treated w/ anti-emetics & IV fluids, reports slight improved but vomited once earlier today. She is scheduled to undergo paracentesis later today for diagnostic & therapeutic purposes. She denies any CP, headache or diarrhea. 10 point review of system is negative except for above. OBJECTIVE PHYSICAL EXAMINATION: VITAL SIGNS: Please see below. GENERAL: frail, cachectic HEENT: normocephalic, dry mucus membranes CARDIOVASCULAR: S1, S2 RESPIRATORY: clear to auscultation ABDOMINAL: soft, distended, diffuse tenderness to palpation, +BS EXTREMITIES: ROM intact NEUROLOGICAL: no focal deficits PSYCHOLOGICAL: calm LABORATORY DATA, IMAGING STUDIES, MICROBIOLOGY: Please see below. DVT prophylaxis ordered?:Yes ASSESSMENT AND PLAN: 63 y.o female w/ PMH of peritoneal mesothelioma, Raynaud's & HTN is admitted for intractable vomiting. PROBLEMS: 1. Intractable vomiting - due to peritoneal mesothelioma and likely malignant ascities, continue antiemetics, discontinue IV fluids, encourage PO intake if tolerating, will provide IV albumin if patient requires additional intravascular volume, scheduled for paracentesis later today, should help with vomiting & improve PO intake. continue empiric cefepime for now. 2. Peritoneal mesothelioma - causing malignanct ascities, had 5L removed less than a week ago, currently awaiting repeat biopsy results before treatment plan is made (debulking vs chemo). 3. GERD - continue PPI & carafate DVT Prophylaxis - heparin SubQ GI Prophylaxis - PPI & Carafate VS, I&O, 24H, Fishbone Vital Signs/I&O Vital Signs Date Time Temp Pulse Resp B/P (MAP) Pulse Ox O2 Delivery O2 Flow Rate FiO2 05/07/19 16:58 98 16 94 Room Air 05/07/19 15:50 97.8 05/07/19 14:00 126/79 (95) 05/07/19 06:01 1.0 I&O- Last 24 Hours up to 6 AM 05/07/19 06:00 Intake Total 430 ml Output Total 0 ml Balance 430 ml Laboratory Data 24H LABS Laboratory Tests 2 05/06/19 21:19: Immature Granulocyte % (Auto) 1.3, Neutrophils (%) (Auto) 86.2H, Lymphocytes (%) (Auto) 3.5L, Monocytes (%) (Auto) 8.8H, Eosinophils (%) (Auto) 0.1, Basophils (%) (Auto) 0.1, Neutrophils # (Auto) 15.2H, Lymphocytes # (Auto) 0.6L, Monocytes # (Auto) 1.6H, Eosinophils # (Auto) 0.0, Basophils # (Auto) 0.0, Nucleated Red Blood Cells % (auto) 0.0, Anion Gap 10, Glomerular Filtration Rate > 60.0, Lactic Acid Level 1.6, Calcium Level 6.7L, Magnesium Level 1.4L, Total Bilirubin 0.2, Direct Bilirubin 0.1, Aspartate Amino Transf (AST/SGOT) 24, Alanine Aminotransferase (ALT/SGPT) 14, Alkaline Phosphatase 266H, Total Protein 5.5L, A lbumin 1.0L, Albumin/Globulin Ratio 0.22L, Lipase 57L, Cortisol Baseline 34.6H 05/07/19 01:45: Lactic Acid Level 1.5 05/07/19 09:25: Nucleated Red Blood Cells % (auto) 0.0 05/07/19 09:26: Anion Gap 9, Glomerular Filtration Rate > 60.0, Calcium Level 8.2#L, Total Bilirubin 0.2, Aspartate Amino Transf (AST/SGOT) 20, Alanine Aminotransferase (ALT/SGPT) 14, Alkaline Phosphatase 276H, Total Protein 6.2L, Albumin 1.2L, Albumin/Globulin Ratio 0.24L CBC/BMP Laboratory Tests 05/06/19 21:19 05/07/19 09:25 05/07/19 09:26 Microbiology Microbiology 05/07/19 Blood Culture, Received Pending SOO VILLASEÑOR MD May 07, 2019 17:50
[2019-05-07 18:27] LABS: SOURCE, BODY FLUID ALBUMIN ASCITES; SOURCE, BODY FLUID GLUCOSE ASCITES; SOURCE, BODY FLUID TOT PROTEIN ASCITES; TOTAL PROTEIN, BODY FLUID 3.7 G/DL (NOT ESTABLISHED)
[2019-05-07 18:32] LABS: SOURCE, BODY FLUID ASCITES
[2019-05-07 18:33] LABS: APPEARANCE, BODY FLUID TURBID (CLEAR); ASCITES FL COLOR YELLOW (COLORLESS)
[2019-05-07 20:27] VITALS: BP 125/77
[2019-05-08] MEDS: SUCRALFATE SUSP 1GM/10ML UD PO SCH ×4 (00:24→18:05)
[2019-05-08] MEDS: METOCLOPRAMIDE INJ 10MG/2ML VIAL (J2765) IV SCH ×4 (00:24→18:05)
[2019-05-08] MEDS: CEFEPIME HCL 2 GM in D5W MINI-BAG PLUS 50 ML IV SCH ×2 (02:17→09:36)
[2019-05-08] MEDS: ONDANSETRON 4MG/2ML VIAL (J2405) IV PRN ×2 (02:18→20:28)
[2019-05-08] MEDS: MORPHINE 2 MG/ML 1ML VIAL (J2270) IV PRN ×4 (02:18→20:28)
[2019-05-08 05:47] VITALS: BP 124/71
[2019-05-08 06:40] LABS: HEMATOCRIT 29.4 % (36.0-47.0); HEMOGLOBIN 9.2 g/dl (12.0-15.5); MEAN CORPUSCULAR HGB CONC 31.3 g/dl (32.0-36.5); MEAN CORPUSCULAR VOLUME 79.9 fl (80.0-96.0); RED BLOOD COUNT 3.68 10^6/uL (4.00-5.40); WHITE BLOOD COUNT 14.1 10^3/uL (4.0-10.0)
[2019-05-08 06:42] LABS: PLATELET COUNT, AUTOMATED 1070 10^3/uL (150-450)
[2019-05-08 07:15] LABS: ALBUMIN 1.1 GM/DL (3.2-5.2); ALT/SGPT 11 U/L (12-78); BILIRUBIN,TOTAL 0.3 MG/DL (0.2-1.0); BLOOD UREA NITROGEN 13 MG/DL (7-18); CALCIUM LEVEL 7.9 MG/DL (8.8-10.2); CARBON DIOXIDE LEVEL 26 MEQ/L (21-32); CHLORIDE LEVEL 93 MEQ/L (98-107); CREATININE FOR GFR 0.46 MG/DL (0.55-1.30); GLOMERULAR FILTRATION RATE > 60.0 (>45); GLUCOSE, FASTING 160 MG/DL (70-100); MAGNESIUM LEVEL 2.1 MG/DL (1.8-2.4); PHOSPHORUS LEVEL 2.7 MG/DL (2.5-4.9); POTASSIUM SERUM 5.2 MEQ/L (3.5-5.1); SODIUM LEVEL 128 MEQ/L (136-145)
[2019-05-08] MEDS ORDERED: FUROSEMIDE 20 MG TAB PO SCH (09:00)
[2019-05-08] MEDS: MAGNESIUM OXIDE 400 MG TAB (MAG-OX) PO SCH ×2 (09:34→20:27)
[2019-05-08] MEDS: HEPARIN SOD (PORCINE) 5000 UNITS/ML VIAL SC SCH ×2 (09:36→20:28)
[2019-05-08] MEDS: PANTOPRAZOLE 40MG INJ (PROTONIX) (C9113) IV SCH ×2 (09:36→20:28)
--- NOTE | 2019-05-08 12:15 | REP ---
Ultrasound-guided paracentesis The procedure was performed by LIAM Vaughn, under the direct supervision of Dr. Garcia. The risks and benefits of the procedure were explained to the patient and informed consent was obtained both verbally and written. Directly prior to the start of the procedure, a formal timeout was completed in the procedure room. Under ultrasound guidance, the largest pocket of fluid in the right flank was localized and skin was marked. The skin was then prepped and draped in a sterile fashion. 10 ml of 1% lidocaine 10 mg/ml was used as a local anesthetic. Using ultrasound guidance, an 8-Croatian multi side-hole catheter was inserted using trocar technique. 1,000 mL of pink colored fluid was withdrawn, 200 of which were sent to the lab for further analysis, and the rest was discarded. The patient tolerated the procedure well and there were no immediate complications. After the appropriate monitored convalescence the patient was discharged from the department. Reviewed by LIAM Minor 05/07/2019 05:29 P Electronically Signed by Jose Ramon Garcia MD 05/08/2019 12:06 P
[2019-05-08 14:00] VITALS: BP 121/70
--- NOTE | 2019-05-08 20:23 | IPNPDOC ---
Date Seen The patient was seen on 05/08/19. Progress Note SUBJECTIVE: 63 y.o female w/ PMH of peritoneal mesothelioma, Raynaud's & HTN is admitted for intractable nausea & vomiting along with worsening abdominal pain. She was recently diagnosed w/ her malignancy, followed up at [facility], underwent laparoscopy with repeat biopsy & removal of 5L of Ascitic fluid (less than a week ago). She was also admitted recently at [facility] for intractable N/V secondary to her malignancy. She reports increased abdominal distension over the past few days, inability to tolerate any oral intake with worsening nausea/vomiting. She is being treated w/ anti-emetics & IV fluids, reports slight improved but vomited once earlier today. She is scheduled to undergo paracentesis later today for diagnostic & therapeutic purposes. She denies any CP, headache or diarrhea. 05/08/2019 Patient continued to have nausea, vomiting overnight, no vomiting in the m orning, tolerated small amounts of liquids, continues to have mild abdominal pain, 1 L of ascitic fluid was removed yesterday during paracentesis. She denies any shortness of breath, chest pain or diarrhea. 10 point review of system is negative except for above. OBJECTIVE PHYSICAL EXAMINATION: VITAL SIGNS: Please see below. GENERAL: frail, cachectic HEENT: normocephalic, dry mucus membranes CARDIOVASCULAR: S1, S2 RESPIRATORY: clear to auscultation ABDOMINAL: soft, distended, diffuse tenderness to palpation, +BS EXTREMITIES: ROM intact NEUROLOGICAL: no focal deficits PSYCHOLOGICAL: calm LABORATORY DATA, IMAGING STUDIES, MICROBIOLOGY: Please see below. DVT prophylaxis ordered?:Yes ASSESSMENT AND PLAN: 63 y.o female w/ PMH of peritoneal mesothelioma, Raynaud's & HTN is admitted for intractable vomiting. PROBLEMS: 1. Intractable vomiting - due to peritoneal mesothelioma and likely malignant ascities, continue antiemetics, encourage PO intake if tolerating, status post paracentesis yesterday, removal of 1 L, ascitic fluid negative for SBP, cefepime discontinued, SAAG <1.1, ascites likely malignant, cytology pending. 2. Peritoneal mesothelioma - causing malignanct ascities, had 5L removed less than a week ago, awaiting biopsy results from surgeon at [place], I attempted to call, but there was no answer. Will await further plan regarding her malignancy, surgery versus chemot herapy before making discharge plans as patient may require transfer to [place] if surgery is elected as she is unable to travel on her own due to her current situation. 3. GERD - continue PPI & carafate DVT Prophylaxis - heparin SubQ GI Prophylaxis - PPI & Carafate VS, I&O, 24H, Fishbone Vital Signs/I&O Vital Signs Date Time Temp Pulse Resp B/P (MAP) Pulse Ox O2 Delivery O2 Flow Rate FiO2 05/08/19 15:30 16 Room Air 05/08/19 14:00 98.6 102 121/70 (87) 94 05/07/19 06:01 1.0 I&O- Last 24 Hours up to 6 AM 05/08/19 06:00 Intake Total 2015 ml Output Total 1850 ml Balance 165 ml Laboratory Data 24H LABS Laboratory Tests 2 05/08/19 06:20: Nucleated Red Blood Cells % (auto) 0.0, Anion Gap 9, Glomerular Filtration Rate > 60.0, Calcium Level 7.9L, Phosphorus Level 2.7, Magnesium Level 2.1, Total Bilirubin 0.3, Aspartate Amino Transf (AST/SGOT) 23, Alanine Aminotransferase (ALT/SGPT) 11L, Alkaline Phosphatase 229H, Total Protein 5.0L, Albumin 1.1L, Albumin/Globulin Ratio 0.28L CBC/BMP Laboratory Tests 05/08/19 06:20 Microbiology Microbiology 05/07/19 Acid Fast Stain, Received Pending 05/07/19 Mycobacterial Culture, Received Pending 05/07/19 Fungal Smear, Received Pending 05/07/19 Fungal Culture, Received Pending 05/07/19 Gram Stain - Final, Resulted 05/07/19 Body Fluid Culture, Resulted Pending 05/07/19 Blood Culture - Preliminary, Resulted No growth after 24 hours . All specim... SOO VILLASEÑOR MD May 08, 2019 20:23
[2019-05-08 22:00] VITALS: BP 129/69
[2019-05-09] MEDS: METOCLOPRAMIDE INJ 10MG/2ML VIAL (J2765) IV SCH ×5 (00:01→23:38)
[2019-05-09] MEDS: SUCRALFATE SUSP 1GM/10ML UD PO SCH ×5 (00:01→23:38)
[2019-05-09] MEDS: MORPHINE 2 MG/ML 1ML VIAL (J2270) IV PRN ×5 (01:22→20:42)
[2019-05-09] MEDS: ONDANSETRON 4MG/2ML VIAL (J2405) IV PRN ×4 (01:22→20:42)
[2019-05-09 05:56] LABS: HEMATOCRIT 31.2 % (36.0-47.0); HEMOGLOBIN 9.3 g/dl (12.0-15.5); MEAN CORPUSCULAR HEMOGLOBIN 24.8 pg (27.0-33.0); MEAN CORPUSCULAR HGB CONC 29.8 g/dl (32.0-36.5); MEAN CORPUSCULAR VOLUME 83.2 fl (80.0-96.0); PLATELET COUNT, AUTOMATED 999 10^3/uL (150-450); RED BLOOD COUNT 3.75 10^6/uL (4.00-5.40); WHITE BLOOD COUNT 13.4 10^3/uL (4.0-10.0)
[2019-05-09 06:00] VITALS: BP 120/67
[2019-05-09 06:31] LABS: ALBUMIN 1.1 GM/DL (3.2-5.2); ALT/SGPT 10 U/L (12-78); BILIRUBIN,TOTAL 0.2 MG/DL (0.2-1.0); BLOOD UREA NITROGEN 11 MG/DL (7-18); CALCIUM LEVEL 8.2 MG/DL (8.8-10.2); CARBON DIOXIDE LEVEL 26 MEQ/L (21-32); CHLORIDE LEVEL 96 MEQ/L (98-107); CREATININE FOR GFR 0.52 MG/DL (0.55-1.30); GLOMERULAR FILTRATION RATE > 60.0 (>45); GLUCOSE, FASTING 140 MG/DL (70-100); PHOSPHORUS LEVEL 1.6 MG/DL (2.5-4.9); POTASSIUM SERUM 4.3 MEQ/L (3.5-5.1); SODIUM LEVEL 131 MEQ/L (136-145); TOTAL PROTEIN 6.1 GM/DL (6.4-8.2)
[2019-05-09] MEDS: PANTOPRAZOLE 40MG INJ (PROTONIX) (C9113) IV SCH ×2 (08:50→20:42)
[2019-05-09] MEDS: MAGNESIUM OXIDE 400 MG TAB (MAG-OX) PO SCH ×2 (08:50→20:41)
[2019-05-09] MEDS: HEPARIN SOD (PORCINE) 5000 UNITS/ML VIAL SC SCH ×2 (08:51→20:43)
[2019-05-09] MEDS ORDERED: SODIUM PHOSPHATE INJ 30 MMOL in D5W 500 ML IV ONE (10:00)
[2019-05-09 14:00] VITALS: BP 118/66
--- NOTE | 2019-05-09 19:06 | IPNPDOC ---
Date Seen The patient was seen on 05/09/19. Progress Note SUBJECTIVE: 63 y.o female w/ PMH of peritoneal mesothelioma, Raynaud's & HTN is admitted for intractable nausea & vomiting along with worsening abdominal pain. She was recently diagnosed w/ her malignancy, followed up at [facility], underwent laparoscopy with repeat biopsy & removal of 5L of Ascitic fluid (less than a week ago). She was also admitted recently at [facility] for intractable N/V secondary to her malignancy. She reports increased abdominal distension over the past few days, inability to tolerate any oral intake with worsening nausea/vomiting. She is being treated w/ anti-emetics & IV fluids, reports slight improved but vomited once earlier today. She is scheduled to undergo paracentesis later today for diagnostic & therapeutic purposes. She denies any CP, headache or diarrhea. 05/08/2019 Patient continued to have nausea, vomiting overnight, no vomiting in the m orning, tolerated small amounts of liquids, continues to have mild abdominal pain, 1 L of ascitic fluid was removed yesterday during paracentesis. She denies any shortness of breath, chest pain or diarrhea. 05/09/19 No acute events, tolerating small meals, no vomiting for >24 hours, remains weak with increasing abdominal distension, unable to get in touch with surgeon at [place] regarding further treatment plan for her mesothelioma. 10 point review of system is negative except for above. OBJECTIVE PHYSICAL EXAMINATION: VITAL SIGNS: Please see below. GENERAL: frail, cachectic HEENT: normocephalic, moist mucus membranes CARDIOVASCULAR: S1, S2 RESPIRATORY: clear to auscultation ABDOMINAL: soft, distended, diffuse tenderness to palpation, +BS EXTREMITIES: ROM intact NEUROLOGICAL: no focal deficits PSYCHOLOGICAL: calm LABORATORY DATA, IMAGING STUDIES, MICROBIOLOGY: Please see below. DVT prophylaxis ordered?:Yes ASSESSMENT AND PLAN: 63 y.o female w/ PMH of peritoneal mesothelioma, Raynaud's & HTN is admitted for intractable vomiting. PROBLEMS: 1. Intractable vomiting - due to peritoneal mesothelioma and likely malignant ascities, continue antiemetics, status post paracentesis with removal of 1 L, ascitic fluid negative for SBP, cefepime discontinued, SAAG <1.1, ascites likely malignant, cytology pending. 2. Peritoneal mesothelioma - causing malignanct ascities, had 5L removed less than a week ago, awaiting biopsy results from surgeon at [place], I attempted to call but there was no answer. Will await further plan regarding her malignancy, surgery versus chemotherapy before making discharge plans as patient may require transfer to [place] if surgery is elected as she is unable to travel on her own due to her current situation. 3. GERD - continue PPI & carafate DVT Prophylaxis - heparin SubQ GI Prophylaxis - PPI & Carafate VS, I&O, 24H, Fishbone Vital Signs/I&O Vital Signs Date Time Temp Pulse Resp B/P (MAP) Pulse Ox O2 Delivery O2 Flow Rate FiO2 05/09/19 16:06 18 05/09/19 14:00 97.0 100 118/66 (83) 98 Room Air 05/07/19 06:01 1.0 I&O- Last 24 Hours up to 6 AM 05/09/19 06:00 Intake Total 1740 ml Output Total 1100 ml Balance 640 ml Laboratory Data 24H LABS Laboratory Tests 2 05/09/19 05:44: Nucleated Red Blood Cells % (auto) 0.0, Anion Gap 9, Glomerular Filtration Rate > 60.0, Calcium Level 8.2L, Phosphorus Level 1.6#L, Magnesium Level 2.0, Total Bilirubin 0.2, Aspartate Amino Transf (AST/SGOT) 19, Alanine Aminotransferase (ALT/SGPT) 10L, Alkaline Phosphatase 216H, Total Protein 6.1#L, Albumin 1.1L, Albumin/Globulin Ratio 0.22L CBC/BMP Laboratory Tests 05/09/19 05:44 Microbiology Microbiology 05/07/19 Acid Fast Stain, Received Pending 05/07/19 Mycobacterial Culture, Received Pending 05/07/19 Fungal Smear, Received Pending 05/07/19 Fungal Culture, Received Pending 05/07/19 Gram Stain - Final, Complete 05/07/19 Body Fluid Culture - Final, Complete 05/07/19 Blood Culture - Preliminary, Resulted No Growth after 48 hours. All Specime... SOO VILLASEÑOR MD May 09, 2019 19:06
[2019-05-09 22:00] VITALS: BP 119/67
[2019-05-10] MEDS: MORPHINE 2 MG/ML 1ML VIAL (J2270) IV PRN ×5 (03:44→22:13)
[2019-05-10] MEDS: ONDANSETRON 4MG/2ML VIAL (J2405) IV PRN ×3 (03:44→22:12)
[2019-05-10 05:43] VITALS: BP 119/67
[2019-05-10 05:52] LABS: HEMATOCRIT 30.6 % (36.0-47.0); HEMOGLOBIN 9.3 g/dl (12.0-15.5); MEAN CORPUSCULAR HEMOGLOBIN 25.1 pg (27.0-33.0); MEAN CORPUSCULAR HGB CONC 30.4 g/dl (32.0-36.5); MEAN CORPUSCULAR VOLUME 82.7 fl (80.0-96.0); PLATELET COUNT, AUTOMATED 983 10^3/uL (150-450); WHITE BLOOD COUNT 15.3 10^3/uL (4.0-10.0)
[2019-05-10] MEDS: METOCLOPRAMIDE INJ 10MG/2ML VIAL (J2765) IV SCH ×3 (06:09→17:24)
[2019-05-10] MEDS: SUCRALFATE SUSP 1GM/10ML UD PO SCH ×3 (06:09→17:24)
[2019-05-10 06:20] LABS: ALBUMIN 1.1 GM/DL (3.2-5.2); ALT/SGPT 9 U/L (12-78); BILIRUBIN,TOTAL 0.2 MG/DL (0.2-1.0); BLOOD UREA NITROGEN 11 MG/DL (7-18); CALCIUM LEVEL 8.3 MG/DL (8.8-10.2); CARBON DIOXIDE LEVEL 23 MEQ/L (21-32); CHLORIDE LEVEL 98 MEQ/L (98-107); CREATININE FOR GFR 0.46 MG/DL (0.55-1.30); GLOMERULAR FILTRATION RATE > 60.0 (>45); GLUCOSE, FASTING 175 MG/DL (70-100); SODIUM LEVEL 130 MEQ/L (136-145); TOTAL PROTEIN 6.1 GM/DL (6.4-8.2)
[2019-05-10] MEDS: HEPARIN SOD (PORCINE) 5000 UNITS/ML VIAL SC SCH ×2 (09:13→22:12)
[2019-05-10] MEDS: PANTOPRAZOLE 40MG INJ (PROTONIX) (C9113) IV SCH ×2 (09:14→22:12)
[2019-05-10] MEDS: MAGNESIUM OXIDE 400 MG TAB (MAG-OX) PO SCH ×2 (09:23→22:13)
[2019-05-10] MEDS: FUROSEMIDE 20 MG TAB PO SCH (09:27)
[2019-05-10] MEDS: LEVOTHYROXINE 25MCG TABLET (0.025MG) PO SCH (09:27)
[2019-05-10 14:00] VITALS: BP 118/68
[2019-05-10 22:00] VITALS: BP 120/68
--- NOTE | 2019-05-10 23:40 | IPNPDOC ---
Date Seen The patient was seen on 05/10/19. Progress Note SUBJECTIVE: 63 y.o female w/ PMH of peritoneal mesothelioma, Raynaud's & HTN is admitted for intractable nausea & vomiting along with worsening abdominal pain. She was recently diagnosed w/ her malignancy, followed up at [facility], underwent laparoscopy with repeat biopsy & removal of 5L of Ascitic fluid (less than a week ago). She was also admitted recently at [place] for intractable N/V secondary to her malignancy. She reports increased abdominal distension over the past few days, inability to tolerate any oral intake with worsening nausea/vomiting. She is being treated w/ anti-emetics & IV fluids, reports slight improved but vomited once earlier today. She is scheduled to undergo paracentesis later today for diagnostic & therapeutic purposes. She denies any CP, headache or diarrhea. 05/08/2019 Patient continued to have nausea, vomiting overnight, no vomiting in the m orning, tolerated small amounts of liquids, continues to have mild abdominal pain, 1 L of ascitic fluid was removed yesterday during paracentesis. She denies any shortness of breath, chest pain or diarrhea. 05/09/19 No acute events, tolerating small meals, no vomiting for >24 hours, remains weak with increasing abdominal distension, unable to get in touch with surgeon at [place] regarding further treatment plan for her mesothelioma. 05/10/19 Patient comfortable in chair, reports improvement in vomiting, continues to have minimal oral intake due to fear of nausea and vomiting, nutrition is very poor, no other complaints. Case discussed with Dr. Jay in [place], who agrees that patient will benefit from transfer there with plans for possible debulking procedure. He will be accepting physician, transfer process initiated, will likely go tomorrow. 10 point review of system is negative except for above. OBJECTIVE PHYSICAL EXAMINATION: VITAL SIGNS: Please see below. GENERAL: frail, cachectic HEENT: normocephalic, moist mucus membranes CARDIOVASCULAR: S1, S2 RESPIRATORY: clear to auscultation ABDOMINAL: soft, distended, diffuse tenderness to palpation, +BS EXTREMITIES: ROM intact NEUROLOGICAL: no focal deficits PSYCHOLOGICAL: calm LABORATORY DATA, IMAGING STUDIES, MICROBIOLOGY: Please see below. DVT prophylaxis ordered?:Yes ASSESSMENT AND PLAN: 63 y.o female w/ PMH of peritoneal mesothelioma, Raynaud's & HTN is admitted for intractable vomiting. PROBLEMS: 1. Intractable vomiting - due to peritoneal mesothelioma and likely malignant ascities, continue antiemetics, status post paracentesis with removal of 1 L, ascitic fluid negative for SBP, cefepime discontinued, SAAG <1.1, ascites likely malignant, cytology pending. 2. Peritoneal mesothelioma - causing malignanct ascities, had 5L removed less than a week ago, awaiting biopsy results from surgeon at [place], case discussed with Dr. Jay at [place], he agrees for transfer to [place] with possible debulking procedure, transfer process initiated, likely going tomorrow. 3. GERD - continue PPI & carafate DVT Prophylaxis - heparin SubQ GI Prophylaxis - PPI & Carafate VS, I&O, 24H, Fishbone Vital Signs/I&O Vital Signs Date Time Temp Pulse Resp B/P (MAP) Pulse Ox O2 Delivery O2 Flow Rate FiO2 05/10/19 22:13 16 05/10/19 22:00 97.9 105 120/68 (85) 90 Room Air 05/07/19 06:01 1.0 I&O- Last 24 Hours up to 6 AM 05/10/19 06:00 Intake Total 2800 ml Output Total 950 ml Balance 1850 ml Laboratory Data 24H LABS Laboratory Tests 2 05/10/19 05:32: Nucleated Red Blood Cells % (auto) 0.0, Anion Gap 9, Glomerular Filtration Rate > 60.0, Calcium Level 8.3L, Total Bilirubin 0.2, Aspartate Amino Transf (AST/SGOT) 21, Alanine Aminotransferase (ALT/SGPT) 9L, Alkaline Phosphatase 211H, Total Protein 6.1L, Albumin 1.1L, Albumin/Globulin Ratio 0.22L CBC/BMP Laboratory Tests 05/10/19 05:32 Microbiology Microbiology 05/07/19 Acid Fast Stain, Received Pending 05/07/19 Mycobacterial Culture, Received Pending 05/07/19 Fungal Smear, Received Pending 05/07/19 Fungal Culture, Received Pending 05/07/19 Gram Stain - Final, Complete 05/07/19 Body Fluid Culture - Final, Complete 05/07/19 Blood Culture - Preliminary, Resulted No Growth after 72 hours. All specime... SOO VILLASEÑOR MD May 10, 2019 23:40
[2019-05-11] MEDS: SUCRALFATE SUSP 1GM/10ML UD PO SCH ×3 (00:05→12:43)
[2019-05-11] MEDS: METOCLOPRAMIDE INJ 10MG/2ML VIAL (J2765) IV SCH ×3 (00:05→12:43)
[2019-05-11] MEDS: ONDANSETRON 4MG/2ML VIAL (J2405) IV PRN ×3 (02:19→16:07)
[2019-05-11] MEDS: MORPHINE 2 MG/ML 1ML VIAL (J2270) IV PRN ×3 (02:19→10:25)
[2019-05-11 06:00] VITALS: BP 120/68
[2019-05-11] MEDS: LEVOTHYROXINE 25MCG TABLET (0.025MG) PO SCH (06:47)
[2019-05-11] MEDS: PANTOPRAZOLE 40MG INJ (PROTONIX) (C9113) IV SCH (08:52)
[2019-05-11] MEDS: HEPARIN SOD (PORCINE) 5000 UNITS/ML VIAL SC SCH (08:53)
[2019-05-11] MEDS: MAGNESIUM OXIDE 400 MG TAB (MAG-OX) PO SCH (08:53)
[2019-05-11] MEDS: FUROSEMIDE 20 MG TAB PO SCH (08:53)
[2019-05-11] MEDS ORDERED: MORPHINE 4 MG/ML 1ML VIAL/SYRINGE (J2270) IV ONE (16:00)
--- NOTE | 2019-05-11 22:23 | DS.PDOC ---
Discharge Summary General Date of Admission May 07, 2019 at 01:18 Date of Discharge 05/11/19 Attending Physician: SOO VILLASEÑOR MD Discharge Summary PROCEDURES PERFORMED DURING STAY: None ADMITTING DIAGNOSES: 1. Peritoneal mesothelioma, intractable vomiting DISCHARGE DIAGNOSES: 1. Peritoneal mesothelioma, intractable vomiting COMPLICATIONS/CHIEF COMPLAINT: Ascites;Esophagitis;Intractable Vomiting. HISTORY OF PRESENT ILLNESS: 63 y.o female w/ PMH of Peritoneal mesothelioma was admitted for intractable vomiting. She was diagnosed last month, went for surgical evaluation at [place] for possible debulking procedure. She underwent laparoscopy w/ repeat biopsy and removal of 5L of ascites. She is unable to tolerate any oral intake due to worsening ascites along with nausea/vomiting. She was treated w/ Zofran/Reglan with good response but unable to tolerate adequate oral intake to maintain her daily requirements. She also underwent paracentesis during her hospitalization, removed 1.2L total, ascitic fluid was negative for SBP and antibiotics were discontinued. Case was discussed with Dr. Burr at [place] who agrees to transfer the patient to [facility] for further management, possibly debulking procedure. Arrangements for the transfer have been made and she will be transferred to [facility] today. She will be given additional pain control and anti-emetics as needed during her travel. She is clinically and hemodynamically stable for transfer to [facility] at this time. HOSPITAL COURSE: As above DISCHARGE MEDICATIONS: Please see below. ALLERGIES: Please see below. OBJECTIVE PHYSICAL EXAMINATION: VITAL SIGNS: Please see below. GENERAL: frail, cachectic HEENT: normocephalic, moist mucus membranes CARDIOVASCULAR: S1, S2 RESPIRATORY: clear to auscultation ABDOMINAL: soft, distended, diffuse tenderness to palpation, +BS EXTREMITIES: ROM intact NEUROLOGICAL: no focal deficits PSYCHOLOGICAL: calm LABORATORY DATA: Please see below. PROGNOSIS: Guarded ACTIVITY: As tolerated DIET: Dash DISCHARGE PLAN: follow up w/ physician in [facility] DISPOSITION: 70 Xfer Other. DISCHARGE INSTRUCTIONS: 1. as above DISCHARGE CONDITION: Stable TIME SPENT ON DISCHARGE: Greater than 36 minutes. Vital Signs/I&Os Vital Signs Date Time Temp Pulse Resp B/P (MAP) Pulse Ox O2 Delivery O2 Flow Rate FiO2 05/11/19 16:16 16 Room Air 05/11/19 06:00 97.8 107 120/68 (85) 94 05/07/19 06:01 1.0 I&O- Last 24 Hours up to 6 AM 05/11/19 06:00 Intake Total 980 ml Output Total 800 ml Balance 180 ml Microbiology Microbiology 05/07/19 Acid Fast Stain, Received Pending 05/07/19 Mycobacterial Culture, Received Pending 05/07/19 Fungal Smear, Received Pending 05/07/19 Fungal Culture, Received Pending 05/07/19 Gram Stain - Final, Complete 05/07/19 Body Fluid Culture - Final, Complete 05/07/19 Blood Culture - Preliminary, Resulted No Growth after 72 hours. All specime... Discharge Medications Scheduled Furosemide (Furosemide) 20 Mg Tablet, 20 MG PO Q2D, (Reported) Magnesium Oxide (Magnesium Oxide) 400 Mg Tablet, 400 MG PO BID, (Reported) Multivitamin with Minerals (One Daily Energy) 1 Each Tablet, 1 TAB PO DAILY, (Reported) Pantoprazole Sodium (Pantoprazole Sodium) 40 Mg Tablet.dr, 40 MG PO DAILY, (Reported) Scheduled PRN Docusate Sodium (Docusate Sodium) 100 Mg Capsule, 100 MG PO BID PRN for CONSTIPATION, (Reported) Metoclopramide Hcl (Reglan) 5 Mg Tablet, 5 MG PO ACHS PRN for NAUSEA, (Reported) Ondansetron HCl (Ondansetron HCl) 4 Mg Tablet, 4 MG PO Q6H PRN for NAUSEA, (Reported) Oxycodone HCl (Oxycodone HCl) 5 Mg Tablet, 5 MG PO QID PRN for PAIN, (Reported) Polyethylene Glycol 3350 (Miralax) 17 Gm Powd.pack, 17 GM PO DAILY PRN for CONSTIPATION, (Reported) Sennosides (Senna) 8.6 Mg Tablet, 8.6 MG PO DAILY PRN for CONSTIPATION, (Reported) Simethicone (Gas-X) 125 Mg Capsule, 125 MG PO PCHS PRN for DYSPEPSIA, (Reported) Allergies Coded Allergies: Penicillins (Verified Allergy, Unknown, HIVES / RASH, 05/07/19) SOO VILLASEÑOR MD May 11, 2019 22:23
== END 2019-05-11 17:20 | disposition short-term general hospital (02) | DRG 240 ==
LOC: M ED 20:43 → M ED INP 05-07 01:18 → M MS5PR 05-07 02:22
PROVIDERS: ADMIT Internal Medicine; ATTEND Internal Medicine
PROC: 0W9G3ZZ Drainage of Peritoneal Cavity, Percutaneous Approach (ICD-10-PCS; principal; 2019-05-07 16:00)
DX: C45.1 Mesothelioma of peritoneum (principal); R18.0 Malignant ascites; R64 Cachexia; C78.6 Secondary malignant neoplasm of retroperitoneum and peritoneum; N13.30 Unspecified hydronephrosis; I73.00 Raynaud's syndrome without gangrene; I10 Essential (primary) hypertension; E87.6 Hypokalemia; L40.9 Psoriasis, unspecified; D35.02 Benign neoplasm of left adrenal gland; K21.0 Gastro-esophageal reflux disease with esophagitis; Z79.899 Other long term (current) drug therapy; Z88.0 Allergy status to penicillin